=== PATIENT | female | born 1960 | race Caucasian/White ===

== ENCOUNTER → 2016-10-26 | Outpatient (CLI) | payer MEDICAID ==
[~2016-10-26] MED LIST: ADVIL200 MG PO; AMLODIPINE BESYL5 MG PO; ANTIVERT25 MG PO; APRESOLINE 25MG25 MG PO; ATIVAN1 M1 PO; ATORVASTATIN CA40 MG PO; BUDESONIDE0.5 MG/2 M IH; CLOPIDOGREL PO; DECADRON 4MG TAB4 MG PO; DESYREL DIVIDO150 M1 PO; DULCOLAX PO; ED FLEXERI6 TAB/BOTT PO; ED NORCO 56 UDTAB/BO PO; ENOXAPARIN40 MG/0.1 SQ; ERGOCALCIFER50000 IU PO; FERROUS SU325 MG/TAB PO; FLEXERIL10 MG PO; FUROSEMIDE20 MG PO; HUMALOG100 U/ML SQ; INCRUSE EL62.5 MCG/A IH; IPRATROPIUM BROM3 M1 IH; KLOR-CON 1010 MEQ PO; LANTUS100 U/ML SQ; LASIX 40MG TABL40 MG PO; LEVEMIR100 U/M1 SQ; LIDODERM PATCH TP; LISINOPRIL-HYDR1 TA1 PO; LISINOPRIL/HCTZ1 TA1 PO; LORCET1 TAB PO; MECLIZINE25 MG PO; METOPROLOL SUCC50 M1 PO; METOPROLOL TAR100 M1 PO; NAPROSYN500 MG PO; NORCO 325 MG-51 TA1 PO; NORVASC 10MG10 MG PO; NOVOLOG 100U100 U/M1 SC; NOVOLOG 100U100 U/ML SQ; NYSTATIN60 GM TP; ORPHENADRINE C100 MG PO; PANTOPRAZOLE SO40 MG PO; PEG 335017 GM/Dose PO; PENICILLIN-VK250 MG PO; PERCOCET 325 MG1 TA2 PO; PERFOROMIS20 MCG/2 M IH; Patient's Own Medica PO; Patient's Own Medica SQ; SIMVASTATIN80 MG PO; TRIAMCINOLONE A15 GM TP; TRIAMCINOLONE AC0.13 TP; TYLENOL 500MG500 MG PO; VALACYCLOVIR HCL1 GM PO; VITAMIN C500 MG PO; VITAMIN D50000 I2 PO; VITAMIN D50000 UNIT PO; ZESTRIL10 M1 PO
== END ==
LOC: LAB 10:09
DX: N18.2 Chronic kidney disease, stage 2 (mild) (principal)

== ENCOUNTER 2016-11-07 14:29 | Observation (INO) | payer MEDICAID ==
[~2016-11-07 14:29] MED LIST changes: -APRESOLINE 25MG25 MG PO; -ATIVAN1 M1 PO; -ATORVASTATIN CA40 MG PO; -BUDESONIDE0.5 MG/2 M IH; -CLOPIDOGREL PO; -DESYREL DIVIDO150 M1 PO; -DULCOLAX PO; -ENOXAPARIN40 MG/0.1 SQ; -ERGOCALCIFER50000 IU PO; -FERROUS SU325 MG/TAB PO; -FUROSEMIDE20 MG PO; -INCRUSE EL62.5 MCG/A IH; -IPRATROPIUM BROM3 M1 IH; -KLOR-CON 1010 MEQ PO; -LEVEMIR100 U/M1 SQ; -LIDODERM PATCH TP; -LORCET1 TAB PO; -METOPROLOL TAR100 M1 PO; -NOVOLOG 100U100 U/ML SQ; -NYSTATIN60 GM TP; -PANTOPRAZOLE SO40 MG PO; -PEG 335017 GM/Dose PO; -PERFOROMIS20 MCG/2 M IH; -Patient's Own Medica PO; -Patient's Own Medica SQ; -TRIAMCINOLONE A15 GM TP; -TRIAMCINOLONE AC0.13 TP; -VITAMIN C500 MG PO; -VITAMIN D50000 I2 PO; -VITAMIN D50000 UNIT PO; -ZESTRIL10 M1 PO
[2016-11-07 18:00] VITALS: BP 134/86
--- NOTE | 2016-11-07 18:13 | NUR ---
PATIENT ASSISTED TO ROOM VIA W/C FROM ED. OXYGEN REMAINS IN PLACE. SHE DOES REPORT EASE OF BREATHING WITH OXYGEN PLACEMENT; THEY DO REMAIN SLIGHTLY ELEVATED AT 24/MIN. SANDWICH AND SUGAR FREE JELLO PROVIDED TO PATIENT PER REQUEST.
[2016-11-07 18:22] VITALS: BP 134/86
--- NOTE | 2016-11-07 19:28 | NUR ---
REPORT PROVIDED TO LUCIA HERNANDEZ.
--- NOTE | 2016-11-07 21:00 | NUR ---
Shift assessment documented and completed at this time. Pt resting in bed watching TV. Denies dyspnea or pain. 2L NC utilized to maintain spO2 around 90%. Pt states "I feel better after I got this thing" in reference to nasal cannula. HS medications given whole without issue. BG 97; 65 units Lantus adminstered per order. Lungs clear to diminished. Minimal edema to BLE and abdomen. Telemetry in place, NSR. UA collected and sent to lab. No further needs at this time. Bed locked, low, call light within reach, alarm armed.
[2016-11-07 23:09] VITALS: BP 151/73
[2016-11-08 02:25] VITALS: BP 165/82
[2016-11-08 06:22] VITALS: BP 164/86
--- NOTE | 2016-11-08 07:20 | NUR ---
REPORT RECEIVED FROM LUCIA BENTLEY RN
[2016-11-08 07:27] VITALS: BP 137/77
--- NOTE | 2016-11-08 07:27 | NUR ---
PATIENT SITTING UP ON EDGE OF BED. SQL CONSULTANT IN WITH PATIENT. PATIENT JERKING AND SHAKING. REPORTS THAT SHE SAT UP ON EDGE OF BED TO GO TO BATHROOM AND IS FEELING DIZZY. STATES "I JUST FEEL HAZY AND DIZZY" DENIES ANY OTHER SYMPTOMS AT THIS TIME. DENIES CHEST PAIN. REPORTS THAT HER BREATHING FEELS BETTER THIS MORNING. PATIENT HAS DAZED LOOK ON FACE. COLOR PALE. BLOOD PRESSURE 137/77, RESPIRATORY RATE 24, SP02 88% ON OXYGEN VIA AT 3L NASAL CANNULA. OXYGEN INCREASED TO 4L. SP02 UP TO 92-93%. ORIENTED X4. LUNG SOUNDS DIMINISHED IN ALL [place]. RESPIRATIONS SHALLOW. ACCU CHECK 112. CALL LIGHT WITHIN REACH. BED ALARM ON.
--- NOTE | 2016-11-08 07:35 | NUR ---
LAMBERT DE LEON NOTIFIED OF PATIENT'S REPORTS OF DIZZINESS, FEELING HAZY, AND THAT SHE IS JERKING.
--- NOTE | 2016-11-08 07:42 | NUR ---
HALEY BOLIVAR IN TO SEE PATIENT.
--- NOTE | 2016-11-08 07:45 | NUR ---
PATIENT ASSISTED TO BEDSIDE COMMODE. REPORTS NEEDING TO URINATE. PATIENT UNABLE TO VOID. REPORTS THAT SHE CAN NOT VOID BECAUSE OF HER JERKING AND SHAKING. ASSISTED BACK TO BED. CONTINUES TO HAVE JERKY MOVEMENTS AND BE SHAKY. HALEY BECERRA NOTIFIED. ORDER RECEIVED TO PLACE MURRAY CATHETER.
--- NOTE | 2016-11-08 08:15 | NUR ---
MURRAY CATHETER PLACED AT THIS TIME. PATIENT TOLERATED WELL. IMMEDIATE RETURN OF CLOUDY YELLOW URINE IN MURRAY BAG. APPROXIMATELY 500 MLS OF URINE IN MURRAY BAG. UA SENT TO LAB.
[2016-11-08 09:27] VITALS: BP 138/72
--- NOTE | 2016-11-08 09:30 | NUR ---
PATIENT LYING IN BED WITH HEAD OF BED ELEVATED. ON OXYGEN VIA NASAL CANNULA AT 4L. CONTINUES TO REPORT DIZZINESS AND FEELING "HAZY" STILL HAS JERKING/SHAKING. CALL LIGHT WITHIN REACH. BED ALARM ON/
--- NOTE | 2016-11-08 09:34 | NUR ---
ALFONSO PA ON PHONE WITH DR WATERS FROM [facility].
--- NOTE | 2016-11-08 10:05 | NUR ---
MADY CALDERONHAM BONER AT [facility]. PATIENT GOING TO ROOM 322 BED [address] UNDER THE CARE OF DR. NAYLOR.
--- NOTE | 2016-11-08 10:17 | NUR ---
REPORT GIVEN TO MARY JARAMILLO AT [facility]. DENIES ANY QUESTIONS FOR THE NURSE AT THIS TIME.
[2016-11-08] MEDS ORDERED: ENOXAPARIN40 MG/0.1 SQ (10:26)
[2016-11-08] MEDS ORDERED: Patient's Own Medica SQ ×3 (10:27)
[2016-11-08] MEDS ORDERED: Patient's Own Medica PO ×2 (10:27)
--- NOTE | 2016-11-08 10:31 | NUR ---
PATIENT LEFT FACILITY VIA AMBULANCE FOR TRANSFER TO [facility] UNDER THE CARE OF . TRANSFER PAPERWORK SENT WITH EMS. PATIENT'S DAUGHTER ACCOMPANING PATIENT. PERSONAL BELONGINGS SENT WITH DAUGHTER.
== END 2016-11-08 10:31 | disposition short-term general hospital (02) ==
LOC: ED 14:29 → MED/SURG 17:27
PROVIDERS: ADMIT Family Medicine
DX: I50.9 Heart failure, unspecified (principal); E87.70 Fluid overload, unspecified; R09.02 Hypoxemia; R25.8 Other abnormal involuntary movements; I27.81 Cor pulmonale (chronic); E66.2 Morbid (severe) obesity with alveolar hypoventilation; Z68.43 Body mass index [BMI] 50.0-59.9, adult; E87.5 Hyperkalemia; E88.81 Metabolic syndrome and other insulin resistance; E11.21 Type 2 diabetes mellitus with diabetic nephropathy; Z79.4 Long term (current) use of insulin; I10 Essential (primary) hypertension; G47.30 Sleep apnea, unspecified; E11.22 Type 2 diabetes mellitus with diabetic chronic kidney disease; I12.9 Hypertensive chronic kidney disease with stage 1 through stage 4 chronic kidney disease, or unspecified chronic kidney disease; N18.9 Chronic kidney disease, unspecified; Z85.528 Personal history of other malignant neoplasm of kidney
CPT/HCPCS: G0378; J1650; J1940

== ENCOUNTER 2016-11-18 16:52 | Inpatient (IN) | payer MEDICAID ==
[~2016-11-18 16:52] MED LIST changes: +ENOXAPARIN40 MG/0.1 SQ; +Patient's Own Medica PO; +Patient's Own Medica SQ
[2016-11-19 16:05] VITALS: BP 150/90
[2016-11-19 18:15] VITALS: BP 174/82
[2016-11-19] MEDS ORDERED: TRIAMCINOLONE A15 GM TP (23:28)
[2016-11-20 06:26] VITALS: BP 144/78
[2016-11-20 18:38] VITALS: BP 149/82
[2016-11-21 06:24] VITALS: BP 137/65
[2016-11-21 18:28] VITALS: BP 122/67
[2016-11-22 06:33] VITALS: BP 158/92
[2016-11-22 18:16] VITALS: BP 150/75
[2016-11-23 06:22] VITALS: BP 164/84
[2016-11-23 18:16] VITALS: BP 167/80
[2016-11-24 06:38] VITALS: BP 177/87
[2016-11-24 18:27] VITALS: BP 169/86
[2016-11-25 06:25] VITALS: BP 178/88
[2016-11-25 18:18] VITALS: BP 161/84
[2016-11-26 06:31] VITALS: BP 162/88
[2016-11-26 18:20] VITALS: BP 165/86
[2016-11-27 06:26] VITALS: BP 173/97
[2016-11-27 18:35] VITALS: BP 152/87
[2016-11-28 06:21] VITALS: BP 162/87
[2016-11-28 18:15] VITALS: BP 148/85
[2016-11-29 06:31] VITALS: BP 172/99
[2016-11-29 18:02] VITALS: BP 141/69
[2016-11-30 06:32] VITALS: BP 168/88
[2016-11-30 18:06] VITALS: BP 142/74
[2016-12-01 06:22] VITALS: BP 161/84
[2016-12-01 13:40] VITALS: BP 122/68
[2016-12-01 18:11] VITALS: BP 160/78
[2016-12-02 06:22] VITALS: BP 169/89
[2016-12-02 18:47] VITALS: BP 157/89
[2016-12-03 06:24] VITALS: BP 139/80
[2016-12-03 18:20] VITALS: BP 140/72
[2016-12-04 06:39] VITALS: BP 149/87
[2016-12-04 18:09] VITALS: BP 137/78
[2016-12-05 06:33] VITALS: BP 129/72
[2016-12-05 18:33] VITALS: BP 123/62
[2016-12-06 06:24] VITALS: BP 168/76
[2016-12-06 18:15] VITALS: BP 145/76
[2016-12-07 06:25] VITALS: BP 160/75
[2016-12-07 18:04] VITALS: BP 127/57
[2016-12-08 06:37] VITALS: BP 139/70
[2016-12-08 18:01] VITALS: BP 140/64
[2016-12-09 06:25] VITALS: BP 149/73
[2016-12-09 18:43] VITALS: BP 140/79
[2016-12-10 06:33] VITALS: BP 121/76
[2016-12-10 18:14] VITALS: BP 134/78
[2016-12-11 06:33] VITALS: BP 122/64
[2016-12-11 18:13] VITALS: BP 132/72
[2016-12-12 06:32] VITALS: BP 129/70
[2016-12-12 18:32] VITALS: BP 122/63
[2016-12-13 06:23] VITALS: BP 133/63
[2016-12-13 18:15] VITALS: BP 128/63
[2016-12-14 06:25] VITALS: BP 123/55
[2016-12-14 18:05] VITALS: BP 136/64
[2016-12-15 06:31] VITALS: BP 127/56
[2016-12-15 18:19] VITALS: BP 137/65
[2016-12-16 06:42] VITALS: BP 131/63
[2016-12-16 18:23] VITALS: BP 152/69
[2016-12-17 06:33] VITALS: BP 127/65
[2016-12-17 18:09] VITALS: BP 127/68
[2016-12-18 06:26] VITALS: BP 114/57
[2016-12-18 19:40] VITALS: BP 123/57
[2016-12-19 06:16] VITALS: BP 111/56
[2016-12-19 18:34] VITALS: BP 135/65
[2016-12-20 06:50] VITALS: BP 120/65
[2016-12-20 18:17] VITALS: BP 141/58
[2016-12-21 07:03] VITALS: BP 140/74
[2016-12-21 17:53] VITALS: BP 131/64
[2016-12-22 06:31] VITALS: BP 155/69
[2016-12-22 18:32] VITALS: BP 155/62
[2016-12-23 06:27] VITALS: BP 151/68
[2016-12-23 18:01] VITALS: BP 152/68
[2016-12-24 06:07] VITALS: BP 114/58
[2016-12-24 18:43] VITALS: BP 138/63
[2016-12-25 06:48] VITALS: BP 119/60
[2016-12-25 18:27] VITALS: BP 133/59
[2016-12-26 06:10] VITALS: BP 127/70
[2016-12-26 18:24] VITALS: BP 148/66
[2016-12-27 06:21] VITALS: BP 132/69
[2016-12-27 18:33] VITALS: BP 128/68
[2016-12-28 06:34] VITALS: BP 144/72
[2016-12-28 18:17] VITALS: BP 126/64
[2016-12-29 06:25] VITALS: BP 120/59
[2016-12-29 18:16] VITALS: BP 150/66
[2016-12-30 06:22] VITALS: BP 140/70
[2016-12-30 18:08] VITALS: BP 155/71
[2016-12-31 06:28] VITALS: BP 150/65
[2016-12-31 18:15] VITALS: BP 140/74
[2017-01-01 06:24] VITALS: BP 136/67
[2017-01-01 18:20] VITALS: BP 131/56
[2017-01-02 06:24] VITALS: BP 143/69
[2017-01-02 18:30] VITALS: BP 158/68
[2017-01-03 06:06] VITALS: BP 123/58
[2017-01-03 18:15] VITALS: BP 157/65
[2017-01-04 06:25] VITALS: BP 144/63
[2017-01-04 18:02] VITALS: BP 150/72
[2017-01-05 06:26] VITALS: BP 122/51
[2017-01-05 18:04] VITALS: BP 149/63
[2017-01-06 06:26] VITALS: BP 164/80
[2017-01-06] MEDS ORDERED: INCRUSE EL62.5 MCG/A IH (09:54)
[2017-01-06] MEDS ORDERED: IPRATROPIUM BROM3 M1 IH (09:54)
[2017-01-06] MEDS ORDERED: PERFOROMIS20 MCG/2 M IH (09:55)
[2017-01-06] MEDS ORDERED: FERROUS SU325 MG/TAB PO (09:55)
[2017-01-06] MEDS ORDERED: CLOPIDOGREL PO (09:56)
[2017-01-06] MEDS ORDERED: ATORVASTATIN CA40 MG PO (09:56)
[2017-01-06] MEDS ORDERED: APRESOLINE 25MG25 MG PO (09:57)
[2017-01-06] MEDS ORDERED: METOPROLOL TAR100 M1 PO (09:58)
[2017-01-06] MEDS ORDERED: ZESTRIL10 M1 PO (09:58)
[2017-01-06] MEDS ORDERED: LORCET1 TAB PO (09:59)
[2017-01-06] MEDS ORDERED: DESYREL DIVIDO150 M1 PO (10:00)
[2017-01-06] MEDS ORDERED: ATIVAN1 M1 PO (10:01)
[2017-01-06] MEDS ORDERED: KLOR-CON 1010 MEQ PO (10:02)
[2017-01-06] MEDS ORDERED: FUROSEMIDE20 MG PO (10:02)
[2017-01-06] MEDS ORDERED: DULCOLAX PO (10:03)
[2017-01-06] MEDS ORDERED: BUDESONIDE0.5 MG/2 M IH (10:03)
[2017-01-06] MEDS ORDERED: PANTOPRAZOLE SO40 MG PO (10:04)
[2017-01-06] MEDS ORDERED: PEG 335017 GM/Dose PO (10:04)
[2017-01-06] MEDS ORDERED: NOVOLOG 100U100 U/ML SQ ×3 (10:06)
[2017-01-06] MEDS ORDERED: LEVEMIR100 U/M1 SQ (10:06)
[2017-01-06] MEDS ORDERED: NYSTATIN60 GM TP (10:07)
[2017-01-06] MEDS ORDERED: LIDODERM PATCH TP (10:08)
[2017-01-06] MEDS ORDERED: TRIAMCINOLONE AC0.13 TP (10:08)
[2017-01-06] MEDS ORDERED: VITAMIN C500 MG PO (10:09)
[2017-01-06] MEDS ORDERED: ERGOCALCIFER50000 IU PO (10:09)
== END 2017-01-06 16:15 | disposition home health service (06) | DRG 57 ==
LOC: MED/SURG 11-19 15:15
PROVIDERS: ADMIT Physician Assistant
DX: I69.351 Hemiplegia and hemiparesis following cerebral infarction affecting right dominant side (principal); R53.81 Other malaise; E11.9 Type 2 diabetes mellitus without complications; E66.01 Morbid (severe) obesity due to excess calories; Z68.43 Body mass index [BMI] 50.0-59.9, adult; N17.9 Acute kidney failure, unspecified; G47.33 Obstructive sleep apnea (adult) (pediatric); L89.132 Pressure ulcer of right lower back, stage 2; E78.5 Hyperlipidemia, unspecified; D64.9 Anemia, unspecified; I13.0 Hypertensive heart and chronic kidney disease with heart failure and stage 1 through stage 4 chronic kidney disease, or unspecified chronic kidney disease; I50.9 Heart failure, unspecified; N18.9 Chronic kidney disease, unspecified; J96.10 Chronic respiratory failure, unspecified whether with hypoxia or hypercapnia; L40.9 Psoriasis, unspecified; Z79.4 Long term (current) use of insulin; Z87.891 Personal history of nicotine dependence; Z85.528 Personal history of other malignant neoplasm of kidney
CPT/HCPCS: A6206; J1650; J1815; J1940; J7512

== ENCOUNTER → 2017-02-10 | Outpatient (CLI) | payer MEDICAID ==
[~2017-02-10] MED LIST changes: +APRESOLINE 25MG25 MG PO; +ATIVAN1 M1 PO; +ATORVASTATIN CA40 MG PO; +BUDESONIDE0.5 MG/2 M IH; +CLOPIDOGREL PO; +DESYREL DIVIDO150 M1 PO; +DULCOLAX PO; +ERGOCALCIFER50000 IU PO; +FERROUS SU325 MG/TAB PO; +FUROSEMIDE20 MG PO; +INCRUSE EL62.5 MCG/A IH; +IPRATROPIUM BROM3 M1 IH; +KLOR-CON 1010 MEQ PO; +LEVEMIR100 U/M1 SQ; +LIDODERM PATCH TP; +LORCET1 TAB PO; +METOPROLOL TAR100 M1 PO; +NOVOLOG 100U100 U/ML SQ; +NYSTATIN60 GM TP; +PANTOPRAZOLE SO40 MG PO; +PEG 335017 GM/Dose PO; +PERFOROMIS20 MCG/2 M IH; +TRIAMCINOLONE A15 GM TP; +TRIAMCINOLONE AC0.13 TP; +VITAMIN C500 MG PO; +VITAMIN D50000 I2 PO; +VITAMIN D50000 UNIT PO; +ZESTRIL10 M1 PO
== END ==
LOC: LAB 08:38
DX: I10 Essential (primary) hypertension (principal); I63.311 Cerebral infarction due to thrombosis of right middle cerebral artery; E11.9 Type 2 diabetes mellitus without complications; D50.9 Iron deficiency anemia, unspecified; K90.9 Intestinal malabsorption, unspecified; R80.9 Proteinuria, unspecified; N04.9 Nephrotic syndrome with unspecified morphologic changes; N18.3 Chronic kidney disease, stage 3 (moderate)

== ENCOUNTER 2017-02-13 14:49 | Observation (INO) | payer MEDICAID ==
[~2017-02-13] VITALS: Ht 162.6 cm; Wt 135.0 kg
[~2017-02-13 14:49] MED LIST changes: -VITAMIN D50000 I2 PO; -VITAMIN D50000 UNIT PO
[2017-02-13] MEDS ORDERED: METOPROLOL TAR100 M1 PO (17:06)
[2017-02-13 17:37] VITALS: BP 115/55
[2017-02-13 17:38] VITALS: BP 115/55
[2017-02-13 18:19] VITALS: BP 115/71
[2017-02-13 23:13] VITALS: BP 124/64
[2017-02-14 02:52] VITALS: BP 126/59
[2017-02-14 06:21] VITALS: BP 128/57
[2017-02-14 11:00] VITALS: BP 164/66
[2017-02-14 15:25] VITALS: BP 138/50
[2017-02-14 18:20] VITALS: BP 141/67
[2017-02-14 23:13] VITALS: BP 152/67
[2017-02-15 03:34] VITALS: BP 142/69
[2017-02-15 06:25] VITALS: BP 162/66
[2017-02-15 11:05] VITALS: BP 165/75
[2017-02-15 15:37] VITALS: BP 156/82
[2017-02-15] MEDS ORDERED: VITAMIN D50000 UNIT PO (16:14)
[2017-02-15] MEDS ORDERED: VITAMIN D50000 I2 PO (16:15)
[2017-02-15] MEDS ORDERED: APRESOLINE 25MG25 MG PO (16:18)
[2017-02-15 17:59] VITALS: BP 167/85
[2017-02-15 23:09] VITALS: BP 157/88
[2017-02-16 03:21] VITALS: BP 123/45
[2017-02-16 03:24] VITALS: BP 166/80
[2017-02-16 06:27] VITALS: BP 188/87
[2017-02-16] MEDS ORDERED: LEVEMIR100 U/M1 SQ (10:05)
[2017-02-16 11:10] VITALS: BP 171/84
[2017-02-16 12:09] VITALS: BP 171/84
[2017-02-16 14:41] VITALS: BP 155/90
== END 2017-02-16 14:50 ==
LOC: ED 14:49 → MED/SURG 16:36
PROVIDERS: ADMIT Family Medicine
DX: N17.9 Acute kidney failure, unspecified (principal); N18.9 Chronic kidney disease, unspecified; E86.9 Volume depletion, unspecified; I12.9 Hypertensive chronic kidney disease with stage 1 through stage 4 chronic kidney disease, or unspecified chronic kidney disease; E11.22 Type 2 diabetes mellitus with diabetic chronic kidney disease; Z79.4 Long term (current) use of insulin; E87.5 Hyperkalemia; I27.81 Cor pulmonale (chronic); I69.354 Hemiplegia and hemiparesis following cerebral infarction affecting left non-dominant side; Z90.5 Acquired absence of kidney; E11.649 Type 2 diabetes mellitus with hypoglycemia without coma; J44.9 Chronic obstructive pulmonary disease, unspecified; G47.30 Sleep apnea, unspecified; Z85.528 Personal history of other malignant neoplasm of kidney
CPT/HCPCS: G0378; J1815

== ENCOUNTER → 2017-02-18 | Outpatient (CLI) | payer MEDICAID ==
[2017-02-16 14:41] VITALS: BP 155/90
[~2017-02-18] MED LIST changes: +VITAMIN D50000 I2 PO; +VITAMIN D50000 UNIT PO
== END ==
LOC: LAB 06:30
DX: N18.9 Chronic kidney disease, unspecified (principal)

== ENCOUNTER → 2017-03-01 | Outpatient (CLI) | payer MEDICAID ==
[2017-02-16 14:41] VITALS: BP 155/90
== END ==
LOC: LAB 05:44
DX: D64.9 Anemia, unspecified (principal)

== ENCOUNTER → 2017-03-03 | Outpatient (CLI) | payer MEDICAID ==
[2017-02-16 14:41] VITALS: BP 155/90
== END ==
LOC: LAB 15:01
DX: N18.3 Chronic kidney disease, stage 3 (moderate) (principal)

== ENCOUNTER → 2017-03-28 | Outpatient (CLI) | payer MEDICAID | LOC: LAB 12:13 | DX: E07.89 Other specified disorders of thyroid (principal) ==

== ENCOUNTER → 2017-03-31 | Outpatient (CLI) | payer MEDICAID | LOC: LAB 10:05 | DX: I10 Essential (primary) hypertension (principal); E23.6 Other disorders of pituitary gland ==

== ENCOUNTER → 2017-04-14 | Outpatient (CLI) | payer MEDICAID | LOC: LAB 07:52 | DX: E87.5 Hyperkalemia (principal) ==

== ENCOUNTER 2017-06-26 10:55 | Emergency (ER) | payer MEDICAID ==
[~2017-06-26] VITALS: Ht 162.6 cm; Wt 134.1 kg
[2017-06-26] MEDS ORDERED: ANORO ELLIPTA1 POW IH (11:03)
[2017-06-26] MEDS ORDERED: LASIX40 M1 PO (11:16)
[2017-06-26 12:41] VITALS: BP 188/79
== END 2017-06-26 12:44 | disposition home or self-care (01) ==
LOC: ED 10:55
DX: I16.0 Hypertensive urgency (principal); I13.0 Hypertensive heart and chronic kidney disease with heart failure and stage 1 through stage 4 chronic kidney disease, or unspecified chronic kidney disease; N18.9 Chronic kidney disease, unspecified; E87.5 Hyperkalemia; Z86.73 Personal history of transient ischemic attack (TIA), and cerebral infarction without residual deficits; Z79.4 Long term (current) use of insulin; E11.22 Type 2 diabetes mellitus with diabetic chronic kidney disease; I50.9 Heart failure, unspecified; Z90.5 Acquired absence of kidney; G47.30 Sleep apnea, unspecified; Z79.02 Long term (current) use of antithrombotics/antiplatelets; J35.1 Hypertrophy of tonsils

== ENCOUNTER 2017-07-16 12:08 | Emergency (ER) | payer MEDICAID ==
[~2017-07-16] VITALS: Ht 162.6 cm; Wt 138.2 kg
[~2017-07-16 12:08] MED LIST changes: +ANORO ELLIPTA1 POW IH; +LASIX40 M1 PO
[2017-07-16] MEDS ORDERED: LOPRESSOR 550 MG/TAB PO ×2 (12:20→12:23)
[2017-07-16 12:41] LABS: EOS # 0.2 (0.04-0.40); EOS % 2.4 % (1.0-5.0); HEMATOCRIT 33.5 % (37.0-47.0); HEMOGLOBIN 10.1 g/dL (12.5-16.0); LYMPH# 2.3 (1.50-4.00); MEAN CELL VOLUME 85 fl (78-100); MEAN CORPUSCULAR HEMOGLOBIN 26 pg (27-31); MEAN CORPUSCULAR HGB CONC 30 g/dL (33-37); MEAN PLATELET VOLUME 10.7 fl (7.4-10.4); NEU # 4.5 (1.40-6.50); PLATELET COUNT 202 K/mm3 (130-400); RED BLOOD COUNT 3.96 M/mm3 (4.10-5.30); WHITE BLOOD COUNT 8.1 K/mm3 (4.8-10.8)
[2017-07-16 12:53] LABS: ALBUMIN 3.4 g/dL (3.5-5.0); BUN/CREATININE RATIO 23.8 (6.0-26.0); TOTAL BILIRUBIN 0.5 mg/dL (0.2-1.3); TOTAL PROTEIN 6.5 g/dL (6.3-8.2)
[2017-07-16] MEDS ORDERED: MECLIZINE PO (14:52)
[2017-07-16 14:58] VITALS: BP 166/73
== END 2017-07-16 14:54 | disposition home or self-care (01) ==
LOC: ED 12:08
PROVIDERS: Family Medicine
DX: R42 Dizziness and giddiness (principal); I13.0 Hypertensive heart and chronic kidney disease with heart failure and stage 1 through stage 4 chronic kidney disease, or unspecified chronic kidney disease; E11.22 Type 2 diabetes mellitus with diabetic chronic kidney disease; N18.9 Chronic kidney disease, unspecified; Z79.4 Long term (current) use of insulin; Z86.73 Personal history of transient ischemic attack (TIA), and cerebral infarction without residual deficits; J44.9 Chronic obstructive pulmonary disease, unspecified; Z79.02 Long term (current) use of antithrombotics/antiplatelets

== ENCOUNTER → 2017-08-02 | Outpatient (CLI) | payer MEDICAID ==
[2017-07-16 14:58] VITALS: BP 166/73
[~2017-08-02] MED LIST changes: +LOPRESSOR 550 MG/TAB PO; +MECLIZINE PO
[2017-08-02 09:12] LABS: EOS # 0.2 (0.04-0.40); EOS % 2.3 % (1.0-5.0); HEMOGLOBIN 10.2 g/dL (12.5-16.0); LYMPH# 2.3 (1.50-4.00); MEAN CELL VOLUME 85 fl (78-100); MEAN CORPUSCULAR HEMOGLOBIN 26 pg (27-31); MEAN CORPUSCULAR HGB CONC 30 g/dL (33-37); MEAN PLATELET VOLUME 10.3 fl (7.4-10.4); MONO # 0.7 (0.20-0.80); NEU # 4.7 (1.40-6.50); PLATELET COUNT 216 K/mm3 (130-400); RED BLOOD COUNT 3.99 M/mm3 (4.10-5.30); RED CELL DISTRIBUTION WIDTH 15.9 % (11.5-14.5); WHITE BLOOD COUNT 7.9 K/mm3 (4.8-10.8)
[2017-08-02 09:20] LABS: BUN/CREATININE RATIO 31.9 (6.0-26.0); CALCIUM 9.2 mg/dL (8.4-10.2); POTASSIUM 4.8 mmol/L (3.6-5.0)
== END ==
LOC: LAB 08:47
PROVIDERS: Internal Medicine
DX: I15.8 Other secondary hypertension (principal); R80.8 Other proteinuria; N18.3 Chronic kidney disease, stage 3 (moderate)

== ENCOUNTER 2017-08-23 07:35 | Emergency (ER) | payer MEDICAID ==
[~2017-08-23] VITALS: Wt 148.6 kg
[2017-08-23 07:54] LABS: EOS # 0.3 (0.04-0.40); EOS % 2.1 % (1.0-5.0); HEMATOCRIT 39.4 % (37.0-47.0); HEMOGLOBIN 11.7 g/dL (12.5-16.0); MEAN CELL VOLUME 86 fl (78-100); MEAN CORPUSCULAR HEMOGLOBIN 26 pg (27-31); MEAN CORPUSCULAR HGB CONC 30 g/dL (33-37); MEAN PLATELET VOLUME 10.6 fl (7.4-10.4); MONO # 1.3 (0.20-0.80); NEU # 7.3 (1.40-6.50); PLATELET COUNT 298 K/mm3 (130-400); RED BLOOD COUNT 4.58 M/mm3 (4.10-5.30); RED CELL DISTRIBUTION WIDTH 15.8 % (11.5-14.5); WHITE BLOOD COUNT 15.3 K/mm3 (4.8-10.8)
[2017-08-23 08:03] LABS: LYMPH# 6.1 (1.50-4.00)
[2017-08-23 08:20] LABS: TROPONIN-I < 0.03 ng/mL (0.00-0.06)
[2017-08-23 08:23] LABS: ALBUMIN 3.6 g/dL (3.5-5.0); BUN/CREATININE RATIO 29.5 (6.0-26.0); CALCIUM 9.2 mg/dL (8.4-10.2); D-DIMER 0.73 mg/L FEU (0.15-0.50); POTASSIUM 4.8 mmol/L (3.6-5.0); TOTAL BILIRUBIN 0.5 mg/dL (0.2-1.3); TOTAL PROTEIN 6.9 g/dL (6.3-8.2)
[2017-08-23] MEDS ORDERED: LANTUS PEN100 U/ML SQ (08:28)
[2017-08-23] MEDS ORDERED: METOPROLOL TAR100 M1 PO (08:29)
[2017-08-23] MEDS ORDERED: ACETAMINOPHEN-H1 TA2 PO (08:29)
[2017-08-23] MEDS ORDERED: PULMICORT0.25 MG/2 (08:31)
[2017-08-23] MEDS ORDERED: NYSTATIN15 GM TP (08:32)
[2017-08-23] MEDS ORDERED: HYDRALAZINE HYD50 MG PO (08:32)
[2017-08-23] MEDS ORDERED: FUROSEMIDE20 MG PO (08:32)
[2017-08-23] MEDS ORDERED: COLACE100 M1 PO (08:33)
[2017-08-23 09:19] LABS: URINE APPEARANCE CLEAR; URINE BILIRUBIN NEGATIVE (NEGATIVE); URINE BLOOD 50 ery/uL (NEGATIVE); URINE COLOR YELLOW; URINE KETONE NEGATIVE (NEGATIVE); URINE LEUKOCYTE ESTERASE NEGATIVE (NEGATIVE); URINE MUCUS PRESENT (NOT PRESENT); URINE NITRATE NEGATIVE (NEGATIVE); URINE PROTEIN(semi-quant) 3+ mg/dL (NEGATIVE); URINE UROBILINOGEN NORMAL (NORMAL)
[2017-08-23 11:20] VITALS: BP 143/70
== END 2017-08-23 11:21 | disposition short-term general hospital (02) ==
LOC: ED 07:35
PROVIDERS: Physician Assistant
DX: J96.01 Acute respiratory failure with hypoxia (principal); J44.9 Chronic obstructive pulmonary disease, unspecified; I13.0 Hypertensive heart and chronic kidney disease with heart failure and stage 1 through stage 4 chronic kidney disease, or unspecified chronic kidney disease; I50.9 Heart failure, unspecified; N18.9 Chronic kidney disease, unspecified; E11.22 Type 2 diabetes mellitus with diabetic chronic kidney disease; E66.01 Morbid (severe) obesity due to excess calories; Z71.3 Dietary counseling and surveillance; Z90.5 Acquired absence of kidney; Z85.528 Personal history of other malignant neoplasm of kidney; G47.33 Obstructive sleep apnea (adult) (pediatric); L40.9 Psoriasis, unspecified; E78.5 Hyperlipidemia, unspecified; Z87.891 Personal history of nicotine dependence; Z79.02 Long term (current) use of antithrombotics/antiplatelets; Z79.4 Long term (current) use of insulin
CPT/HCPCS: J1940; J2930

== ENCOUNTER → 2017-09-29 | Outpatient (CLI) | payer MEDICAID ==
[~2017-09-29] MED LIST changes: +ACETAMINOPHEN-H1 TA2 PO; +COLACE100 M1 PO; +HYDRALAZINE HYD50 MG PO; +LANTUS PEN100 U/ML SQ; +NYSTATIN15 GM TP; +PULMICORT0.25 MG/2
[2017-09-29 11:26] LABS: EOS # 0.1 (0.04-0.40); EOS % 1.1 % (1.0-5.0); HEMATOCRIT 34.8 % (37.0-47.0); HEMOGLOBIN 10.2 g/dL (12.5-16.0); LYMPH# 2.1 (1.50-4.00); MEAN CELL VOLUME 85 fl (78-100); MEAN CORPUSCULAR HEMOGLOBIN 25 pg (27-31); MEAN PLATELET VOLUME 10.3 fl (7.4-10.4); MONO # 0.7 (0.20-0.80); NEU # 5.8 (1.40-6.50); PLATELET COUNT 212 K/mm3 (130-400); RED BLOOD COUNT 4.08 M/mm3 (4.10-5.30); RED CELL DISTRIBUTION WIDTH 16.2 % (11.5-14.5); WHITE BLOOD COUNT 8.9 K/mm3 (4.8-10.8)
[2017-09-29 11:47] LABS: BUN/CREATININE RATIO 26.6 (6.0-26.0); MEAN CORPUSCULAR HGB CONC 29 g/dL (33-37)
== END ==
LOC: LAB 11:09
PROVIDERS: Internal Medicine
DX: N18.3 Chronic kidney disease, stage 3 (moderate) (principal); R80.8 Other proteinuria; I15.8 Other secondary hypertension; E87.5 Hyperkalemia

== ENCOUNTER → 2017-10-04 | Outpatient (CLI) | payer MEDICAID ==
[2017-10-04 11:08] LABS: ALBUMIN 3.2 g/dL (3.5-5.0); BUN/CREATININE RATIO 24.2 (6.0-26.0); CALCIUM 8.5 mg/dL (8.4-10.2); POTASSIUM 4.4 mmol/L (3.6-5.0); TOTAL BILIRUBIN 0.2 mg/dL (0.2-1.3); TOTAL PROTEIN 6.3 g/dL (6.3-8.2)
[2017-10-04 11:12] LABS: EOS # 0.1 (0.04-0.40); EOS % 1.6 % (1.0-5.0); HEMATOCRIT 33.7 % (37.0-47.0); HEMOGLOBIN 9.8 g/dL (12.5-16.0); LYMPH# 1.8 (1.50-4.00); MEAN CELL VOLUME 85 fl (78-100); MEAN CORPUSCULAR HEMOGLOBIN 25 pg (27-31); MEAN PLATELET VOLUME 11.1 fl (7.4-10.4); MONO # 0.8 (0.20-0.80); PLATELET COUNT 193 K/mm3 (130-400); RED BLOOD COUNT 3.96 M/mm3 (4.10-5.30); WHITE BLOOD COUNT 8.8 K/mm3 (4.8-10.8)
[2017-10-04 11:13] LABS: MEAN CORPUSCULAR HGB CONC 29 g/dL (33-37)
== END ==
LOC: LAB 10:23
PROVIDERS: Internal Medicine
DX: I10 Essential (primary) hypertension (principal); E11.9 Type 2 diabetes mellitus without complications; N18.3 Chronic kidney disease, stage 3 (moderate)

== ENCOUNTER 2017-10-08 05:22 | Observation (INO) | payer MEDICAID ==
[~2017-10-08] VITALS: Ht 162.6 cm; Wt 149.9 kg
[2017-10-08] MEDS ORDERED: FEOSOL325 MG PO (06:00)
[2017-10-08] MEDS ORDERED: ANORO ELLIPTA1 POW IH (06:01)
[2017-10-08] MEDS ORDERED: LANTUS PEN100 U/ML SQ (06:10)
[2017-10-08] MEDS ORDERED: NOVOLOG 100U100 U/ML SQ (06:11)
[2017-10-08 06:26] LABS: EOS # 0.1 (0.04-0.40); EOS % 0.7 % (1.0-5.0); HEMATOCRIT 33.1 % (37.0-47.0); HEMOGLOBIN 9.6 g/dL (12.5-16.0); LYMPH# 1.3 (1.50-4.00); MEAN CELL VOLUME 87 fl (78-100); MEAN CORPUSCULAR HEMOGLOBIN 25 pg (27-31); MEAN PLATELET VOLUME 10.5 fl (7.4-10.4); MONO # 0.7 (0.20-0.80); PLATELET COUNT 201 K/mm3 (130-400); RED BLOOD COUNT 3.81 M/mm3 (4.10-5.30); RED CELL DISTRIBUTION WIDTH 16.3 % (11.5-14.5); WHITE BLOOD COUNT 10.2 K/mm3 (4.8-10.8)
[2017-10-08 06:29] LABS: ALBUMIN 3.2 g/dL (3.5-5.0); BUN/CREATININE RATIO 20.2 (6.0-26.0); CALCIUM 8.3 mg/dL (8.4-10.2); POTASSIUM 4.8 mmol/L (3.6-5.0); TOTAL BILIRUBIN 0.3 mg/dL (0.2-1.3); TOTAL PROTEIN 6.3 g/dL (6.3-8.2)
[2017-10-08 06:30] LABS: MEAN CORPUSCULAR HGB CONC 29 g/dL (33-37)
[2017-10-08 06:43] LABS: TROPONIN-I < 0.03 ng/mL (0.00-0.06)
[2017-10-08 06:52] LABS: URINE APPEARANCE HAZY; URINE BILIRUBIN NEGATIVE (NEGATIVE); URINE COLOR YELLOW; URINE KETONE NEGATIVE (NEGATIVE); URINE NITRATE NEGATIVE (NEGATIVE); URINE UROBILINOGEN NORMAL (NORMAL)
[2017-10-08 06:53] LABS: URINE BLOOD TRACE (NEGATIVE); URINE LEUKOCYTE ESTERASE NEGATIVE (NEGATIVE)
[2017-10-08 07:00] LABS: URINE PROTEIN(semi-quant) 2+ mg/dL (NEGATIVE)
[2017-10-08] MEDS ORDERED: HYDRALAZINE100 MG PO ×2 (08:19)
[2017-10-08 18:24] VITALS: BP 162/62
[2017-10-08 18:26] VITALS: BP 162/62
[2017-10-08 19:05] VITALS: BP 162/62
--- NOTE | 2017-10-08 19:15 | NUR ---
PT ADMITTED OBS FOR DYSPNIA SECONDARY TO PULM VASC CONGESTION. PT HAS HX OF DIABETES AND RENAL FAILURE. DOES NOT WEAR O2 AT HOME BUT WEARS TRILOGY MASK TO SLEEP. HAS BEEN WEARING IT AN ER PT TO ASSIST WITH SOB. TRILOGY HAS BEEN HELPING. GAIT IS STEADY, PT IS ABLE TO MOVE WELL AND DOES NOT SHOW SIGNS OF SOB UNTIL ANSWERING QUESTIONS DURING ASSESSMENT. PSORIASIS COVERS BLE AND BUE ALONG WITH BACK. REDNESS NOTED TO FOLDS OF SKIN, PT USES NYSTATIN AT HOME ON OCCASION. AOX3, SPEACH IS CLEAR. LUNG SOUNDS DIMINISHED THROUGHOUT. EDEMA TO BLE. WILL CONTINUE TO MONITOR.
--- NOTE | 2017-10-08 19:56 | NUR ---
PT ADMITED OBS TO ROOM 304 WITH DX OF DYSPNEA SECONDARY TO PULM VASC CONGESTION. AOX3, LUNGS DIMINISHED THROUGHOUT, BOWEL SOUNDS PRESENT X4. GAIT IS STEADY. SOB WITH EXERTION. WEARS TRILOGY AT NIGHT AND WHILE SLEEPING. HAS HELPED WITH SOB THROUGHOUT THE DAY IN THE ED. SL IN RIGHT HAND IS CLEAR. HOME MEDS BROUGHT FOR PT. BLE AND ULE COVERED IN PSORIASIS PATCHES. FOLDS OF SKIN SHOW REDNESS, PT USES NYSTATIN ON THEM PRN AT HOME. 2+ PITTING EDEMA TO BLE. TELEMETRY IN PLACE. PT DENIES ANY PAIN AT THIS TIME. ORIENTED TO ROOM, CALL LIGHT IN PLACE. WILL CONTINUE TO MONITOR.
[2017-10-08 23:00] VITALS: BP 148/76
[2017-10-09 03:15] VITALS: BP 159/85
[2017-10-09 07:07] VITALS: BP 150/80
[2017-10-09 07:57] LABS: EOS # 0.2 (0.04-0.40); HEMATOCRIT 32.6 % (37.0-47.0); HEMOGLOBIN 9.5 g/dL (12.5-16.0); LYMPH# 2.6 (1.50-4.00); MEAN CELL VOLUME 86 fl (78-100); MEAN CORPUSCULAR HEMOGLOBIN 25 pg (27-31); MEAN PLATELET VOLUME 10.2 fl (7.4-10.4); MONO # 0.8 (0.20-0.80); PLATELET COUNT 225 K/mm3 (130-400); RED BLOOD COUNT 3.81 M/mm3 (4.10-5.30); RED CELL DISTRIBUTION WIDTH 16.3 % (11.5-14.5); WHITE BLOOD COUNT 8.5 K/mm3 (4.8-10.8)
[2017-10-09 07:58] LABS: MEAN CORPUSCULAR HGB CONC 29 g/dL (33-37)
[2017-10-09 08:44] LABS: BUN/CREATININE RATIO 22.2 (6.0-26.0); CALCIUM 8.7 mg/dL (8.4-10.2)
[2017-10-09] MEDS ORDERED: FUROSEMIDE20 MG PO (11:06)
[2017-10-09 11:15] VITALS: BP 166/79
--- NOTE | 2017-10-09 12:02 | NUR ---
Patient alert and oriented. Denies pain. States she's "feeling better." Oxygen saturation 95% on room air. Patient discharged to home. Discharge instructions provided. Patient verbalizes understanding and denies questions or needs. Daughter arrives to drive patient home. Out of facility via wheelchair to POV. Ambulates from door to POV without incident. Steady gait noted.
== END 2017-10-09 12:02 | disposition home or self-care (01) ==
LOC: ED 05:22 → MED/SURG 18:17
PROVIDERS: ADMIT Family Medicine
DX: I13.0 Hypertensive heart and chronic kidney disease with heart failure and stage 1 through stage 4 chronic kidney disease, or unspecified chronic kidney disease (principal); I50.1 Left ventricular failure, unspecified; E11.22 Type 2 diabetes mellitus with diabetic chronic kidney disease; N18.9 Chronic kidney disease, unspecified; E66.2 Morbid (severe) obesity with alveolar hypoventilation; G47.30 Sleep apnea, unspecified; E78.5 Hyperlipidemia, unspecified; Z86.73 Personal history of transient ischemic attack (TIA), and cerebral infarction without residual deficits; T38.3X6A Underdosing of insulin and oral hypoglycemic [antidiabetic] drugs, initial encounter; Z91.120 Patient's intentional underdosing of medication regimen due to financial hardship; I25.2 Old myocardial infarction; J44.9 Chronic obstructive pulmonary disease, unspecified; Z79.02 Long term (current) use of antithrombotics/antiplatelets; Z68.43 Body mass index [BMI] 50.0-59.9, adult; Z99.81 Dependence on supplemental oxygen; I27.81 Cor pulmonale (chronic); Z79.4 Long term (current) use of insulin; Z90.5 Acquired absence of kidney; Z85.528 Personal history of other malignant neoplasm of kidney; Z87.891 Personal history of nicotine dependence
CPT/HCPCS: G0378; J1644; J1815; J1940

== ENCOUNTER 2017-10-18 16:07 | Emergency (ER) | payer MEDICAID ==
[~2017-10-18 16:07] MED LIST changes: +FEOSOL325 MG PO; +HYDRALAZINE100 MG PO
[2017-10-18 16:31] LABS: EOS # 0.1 (0.04-0.40); EOS % 0.6 % (1.0-5.0); HEMATOCRIT 34.2 % (37.0-47.0); HEMOGLOBIN 9.9 g/dL (12.5-16.0); LYMPH# 1.8 (1.50-4.00); MEAN CELL VOLUME 86 fl (78-100); MEAN CORPUSCULAR HEMOGLOBIN 25 pg (27-31); MEAN PLATELET VOLUME 10.5 fl (7.4-10.4); MONO # 0.7 (0.20-0.80); NEU # 5.1 (1.40-6.50); PLATELET COUNT 197 K/mm3 (130-400); RED BLOOD COUNT 3.96 M/mm3 (4.10-5.30); RED CELL DISTRIBUTION WIDTH 16.1 % (11.5-14.5); WHITE BLOOD COUNT 7.7 K/mm3 (4.8-10.8)
[2017-10-18 16:32] LABS: MEAN CORPUSCULAR HGB CONC 29 g/dL (33-37)
[2017-10-18 16:42] LABS: ALBUMIN 3.3 g/dL (3.5-5.0); BUN/CREATININE RATIO 18.5 (6.0-26.0); CALCIUM 8.2 mg/dL (8.4-10.2); POTASSIUM 5.4 mmol/L (3.6-5.0); TOTAL BILIRUBIN 0.2 mg/dL (0.2-1.3); TOTAL PROTEIN 6.2 g/dL (6.3-8.2)
[2017-10-18 18:22] VITALS: BP 135/72
== END 2017-10-18 17:47 | disposition short-term general hospital (02) ==
LOC: ED 16:07
PROVIDERS: Physician Assistant
DX: J96.01 Acute respiratory failure with hypoxia (principal); I11.0 Hypertensive heart disease with heart failure; I50.9 Heart failure, unspecified; E78.5 Hyperlipidemia, unspecified; Z86.73 Personal history of transient ischemic attack (TIA), and cerebral infarction without residual deficits; J44.9 Chronic obstructive pulmonary disease, unspecified; E11.9 Type 2 diabetes mellitus without complications; Z85.528 Personal history of other malignant neoplasm of kidney; Z90.5 Acquired absence of kidney; Z87.891 Personal history of nicotine dependence; G47.30 Sleep apnea, unspecified; Z79.02 Long term (current) use of antithrombotics/antiplatelets; Z79.4 Long term (current) use of insulin
CPT/HCPCS: J7030

== ENCOUNTER → 2017-10-28 | Outpatient (CLI) | payer MEDICAID ==
[2017-10-18 18:22] VITALS: BP 135/72
[2017-10-28 14:08] LABS: HEMATOCRIT 33.6 % (37.0-47.0); HEMOGLOBIN 10.1 g/dL (12.5-16.0); MEAN PLATELET VOLUME 10.6 fl (7.4-10.4); RED BLOOD COUNT 4.04 M/mm3 (4.10-5.30)
[2017-10-28 14:19] LABS: BUN/CREATININE RATIO 27.7 (6.0-26.0); CALCIUM 8.1 mg/dL (8.4-10.2); POTASSIUM 4.4 mmol/L (3.6-5.0)
== END ==
LOC: LAB 13:50
PROVIDERS: Internal Medicine
DX: N18.3 Chronic kidney disease, stage 3 (moderate) (principal); N17.8 Other acute kidney failure; R80.8 Other proteinuria

== ENCOUNTER → 2018-01-10 | Outpatient (CLI) | payer MEDICAID ==
[2018-01-10 09:11] LABS: EOS # 0.2 (0.04-0.40); EOS % 2.1 % (1.0-5.0); HEMATOCRIT 35.1 % (37.0-47.0); HEMOGLOBIN 10.6 g/dL (12.5-16.0); LYMPH# 2.7 (1.50-4.00); MEAN CELL VOLUME 84 fl (78-100); MEAN CORPUSCULAR HEMOGLOBIN 26 pg (27-31); MEAN CORPUSCULAR HGB CONC 30 g/dL (33-37); MEAN PLATELET VOLUME 10.1 fl (7.4-10.4); MONO # 0.8 (0.20-0.80); NEU # 4.8 (1.40-6.50); PLATELET COUNT 235 K/mm3 (130-400); RED BLOOD COUNT 4.16 M/mm3 (4.10-5.30); RED CELL DISTRIBUTION WIDTH 16.6 % (11.5-14.5); WHITE BLOOD COUNT 8.6 K/mm3 (4.8-10.8)
[2018-01-10 09:16] LABS: BUN/CREATININE RATIO 19.7 (6.0-26.0); POTASSIUM 4.2 mmol/L (3.6-5.0)
[2018-01-12 12:37] LABS: PTH,INTACT 103.2 pg/mL (6.6-88.9)
== END ==
LOC: LAB 08:50
PROVIDERS: Internal Medicine
DX: R80.8 Other proteinuria (principal); E87.5 Hyperkalemia; N18.3 Chronic kidney disease, stage 3 (moderate); I10 Essential (primary) hypertension; E11.9 Type 2 diabetes mellitus without complications

== ENCOUNTER 2018-01-20 15:17 | Emergency (ER) | payer MEDICAID ==
[~2018-01-20 15:17] MED LIST changes: -PULMICORT0.25 MG/2; +PULMICORT0.25 MG/2 IH
[2018-01-20] MEDS ORDERED: LASIX20 M1 PO (15:31)
[2018-01-20 16:34] LABS: HEMATOCRIT 33.6 % (37.0-47.0); HEMOGLOBIN 10.3 g/dL (12.5-16.0); MEAN CELL VOLUME 84 fl (78-100); MEAN CORPUSCULAR HEMOGLOBIN 26 pg (27-31); MEAN CORPUSCULAR HGB CONC 31 g/dL (33-37); MEAN PLATELET VOLUME 10.1 fl (7.4-10.4); PLATELET COUNT 221 K/mm3 (130-400); RED BLOOD COUNT 4.01 M/mm3 (4.10-5.30); RED CELL DISTRIBUTION WIDTH 16.9 % (11.5-14.5); WHITE BLOOD COUNT 8.1 K/mm3 (4.8-10.8)
[2018-01-20 16:44] LABS: ALBUMIN 3.4 g/dL (3.5-5.0); BUN/CREATININE RATIO 19.9 (6.0-26.0); CALCIUM 8.3 mg/dL (8.4-10.2); POTASSIUM 3.7 mmol/L (3.6-5.0); TOTAL BILIRUBIN 0.2 mg/dL (0.2-1.3)
[2018-01-20 17:05] LABS: LYMPHOCYTE 18 % (20-51); MONOCYTE 12 % (3-10); NEUTROPHILS 68 % (42-75)
[2018-01-20 18:19] LABS: URINE APPEARANCE HAZY; URINE BILIRUBIN NEGATIVE (NEGATIVE); URINE BLOOD TRACE (NEGATIVE); URINE COLOR YELLOW; URINE GLUCOSE NEGATIVE (NEGATIVE); URINE KETONE NEGATIVE (NEGATIVE); URINE LEUKOCYTE ESTERASE NEGATIVE (NEGATIVE); URINE NITRATE NEGATIVE (NEGATIVE); URINE PROTEIN(semi-quant) 3+ mg/dL (NEGATIVE); URINE UROBILINOGEN NORMAL (NORMAL)
[2018-01-20] MEDS ORDERED: ZOFRAN ODT4 MG PO (21:17)
[2018-01-20 21:54] VITALS: BP 140/74
== END 2018-01-20 21:54 | disposition home or self-care (01) ==
LOC: ED 15:17
PROVIDERS: Physician Assistant
DX: R19.7 Diarrhea, unspecified (principal); E86.9 Volume depletion, unspecified; E11.22 Type 2 diabetes mellitus with diabetic chronic kidney disease; N18.9 Chronic kidney disease, unspecified; Z90.5 Acquired absence of kidney; Z86.73 Personal history of transient ischemic attack (TIA), and cerebral infarction without residual deficits; J44.9 Chronic obstructive pulmonary disease, unspecified; Z87.891 Personal history of nicotine dependence; Z85.528 Personal history of other malignant neoplasm of kidney; R21 Rash and other nonspecific skin eruption; R60.0 Localized edema; Z79.02 Long term (current) use of antithrombotics/antiplatelets; Z79.4 Long term (current) use of insulin
CPT/HCPCS: J2405; J7030

== ENCOUNTER 2018-01-22 23:50 | Emergency (ER) | payer MEDICAID ==
[~2018-01-22] VITALS: Ht 162.6 cm; Wt 142.3 kg
[~2018-01-22 23:50] MED LIST changes: +LASIX20 M1 PO; +ZOFRAN ODT4 MG PO
[2018-01-23] MEDS ORDERED: LEVEMIR FLEX100 U/ML SQ (00:02)
[2018-01-23] MEDS ORDERED: DESYREL 100MG100 MG PO (00:03)
[2018-01-23 01:07] LABS: EOS % 0.3 % (1.0-5.0); HEMATOCRIT 30.5 % (37.0-47.0); HEMOGLOBIN 9.4 g/dL (12.5-16.0); LYMPH# 1.9 (1.50-4.00); MEAN CELL VOLUME 83 fl (78-100); MEAN CORPUSCULAR HEMOGLOBIN 26 pg (27-31); MEAN CORPUSCULAR HGB CONC 31 g/dL (33-37); MONO # 0.8 (0.20-0.80); NEU # 6.2 (1.40-6.50); PLATELET COUNT 162 K/mm3 (130-400); RED BLOOD COUNT 3.69 M/mm3 (4.10-5.30); RED CELL DISTRIBUTION WIDTH 17.2 % (11.5-14.5); WHITE BLOOD COUNT 9.1 K/mm3 (4.8-10.8)
[2018-01-23 01:18] LABS: BUN/CREATININE RATIO 14.9 (6.0-26.0); CALCIUM 7.9 mg/dL (8.4-10.2); POTASSIUM 4.1 mmol/L (3.6-5.0)
[2018-01-23 01:37] LABS: URINE APPEARANCE HAZY; URINE BILIRUBIN NEGATIVE (NEGATIVE); URINE BLOOD TRACE (NEGATIVE); URINE COLOR YELLOW; URINE GLUCOSE 50 mg/dL mg/dL (NEGATIVE); URINE KETONE NEGATIVE (NEGATIVE); URINE LEUKOCYTE ESTERASE NEGATIVE (NEGATIVE); URINE NITRATE NEGATIVE (NEGATIVE); URINE PROTEIN(semi-quant) 3+ mg/dL (NEGATIVE); URINE UROBILINOGEN NORMAL (NORMAL)
[2018-01-23 01:38] LABS: URINE MUCUS PRESENT (NOT PRESENT)
[2018-01-23 09:05] LABS: EOS # 0.1 (0.04-0.40); EOS % 0.7 % (1.0-5.0); HEMATOCRIT 29.5 % (37.0-47.0); HEMOGLOBIN 8.8 g/dL (12.5-16.0); MEAN CELL VOLUME 83 fl (78-100); MEAN CORPUSCULAR HEMOGLOBIN 25 pg (27-31); MEAN CORPUSCULAR HGB CONC 30 g/dL (33-37); MEAN PLATELET VOLUME 10.4 fl (7.4-10.4); MONO # 0.8 (0.20-0.80); NEU # 4.6 (1.40-6.50); PLATELET COUNT 159 K/mm3 (130-400); RED BLOOD COUNT 3.54 M/mm3 (4.10-5.30); RED CELL DISTRIBUTION WIDTH 17.2 % (11.5-14.5); WHITE BLOOD COUNT 7.5 K/mm3 (4.8-10.8)
[2018-01-23 09:15] LABS: BUN/CREATININE RATIO 15.5 (6.0-26.0); CALCIUM 7.4 mg/dL (8.4-10.2); POTASSIUM 4.1 mmol/L (3.6-5.0)
[2018-01-23 09:49] VITALS: BP 108/56
== END 2018-01-23 10:05 | disposition short-term general hospital (02) ==
LOC: ED 23:50
PROVIDERS: Family Medicine; Nurse Practitioner Primary Care
DX: N17.9 Acute kidney failure, unspecified (principal); E86.9 Volume depletion, unspecified; E11.22 Type 2 diabetes mellitus with diabetic chronic kidney disease; I12.9 Hypertensive chronic kidney disease with stage 1 through stage 4 chronic kidney disease, or unspecified chronic kidney disease; N18.9 Chronic kidney disease, unspecified; Z87.891 Personal history of nicotine dependence; Z79.4 Long term (current) use of insulin; Z79.02 Long term (current) use of antithrombotics/antiplatelets; Z86.73 Personal history of transient ischemic attack (TIA), and cerebral infarction without residual deficits; J44.9 Chronic obstructive pulmonary disease, unspecified; Z90.5 Acquired absence of kidney; Z85.528 Personal history of other malignant neoplasm of kidney; I27.81 Cor pulmonale (chronic); L40.9 Psoriasis, unspecified; M25.561 Pain in right knee; M25.511 Pain in right shoulder; R79.89 Other specified abnormal findings of blood chemistry; R10.817 Generalized abdominal tenderness
CPT/HCPCS: J1815; J7030

== ENCOUNTER → 2018-01-30 | Outpatient (CLI) | payer MEDICAID ==
[2018-01-23 09:49] VITALS: BP 108/56
[~2018-01-30] MED LIST changes: +DESYREL 100MG100 MG PO; +LEVEMIR FLEX100 U/ML SQ
[2018-01-30 09:04] LABS: BUN/CREATININE RATIO 19.8 (6.0-26.0); CALCIUM 8.9 mg/dL (8.4-10.2); POTASSIUM 3.7 mmol/L (3.6-5.0)
== END ==
LOC: LAB 08:29
PROVIDERS: Internal Medicine
DX: N17.9 Acute kidney failure, unspecified (principal)

== ENCOUNTER 2018-02-24 04:05 | Emergency (ER) | payer MEDICAID ==
[~2018-02-24] VITALS: Ht 152.4 cm; Wt 145.5 kg
[2018-02-24 04:50] LABS: EOS # 0.2 (0.04-0.40); EOS % 1.3 % (1.0-5.0); HEMATOCRIT 36.1 % (37.0-47.0); HEMOGLOBIN 10.8 g/dL (12.5-16.0); MEAN CELL VOLUME 86 fl (78-100); MEAN CORPUSCULAR HEMOGLOBIN 26 pg (27-31); MEAN CORPUSCULAR HGB CONC 30 g/dL (33-37); MEAN PLATELET VOLUME 10.8 fl (7.4-10.4); PLATELET COUNT 300 K/mm3 (130-400); RED CELL DISTRIBUTION WIDTH 16.7 % (11.5-14.5); WHITE BLOOD COUNT 15.2 K/mm3 (4.8-10.8)
[2018-02-24 04:51] LABS: LYMPH# 4.7 (1.50-4.00); NEU # 9.1 (1.40-6.50)
[2018-02-24 05:04] LABS: ALBUMIN 3.7 g/dL (3.5-5.0); CALCIUM 8.3 mg/dL (8.4-10.2); POTASSIUM 4.5 mmol/L (3.6-5.0); TOTAL BILIRUBIN 0.4 mg/dL (0.2-1.3); TOTAL PROTEIN 7.4 g/dL (6.3-8.2)
[2018-02-24 05:06] LABS: D-DIMER 1.31 mg/L FEU (0.15-0.50)
[2018-02-24 05:10] LABS: TROPONIN-I < 0.03 ng/mL (0.00-0.06)
[2018-02-24 05:14] LABS: PH-URINE 6.5 (5.0 - 8.0); URINE APPEARANCE CLEAR; URINE BILIRUBIN NEGATIVE (NEGATIVE); URINE BLOOD NEGATIVE (NEGATIVE); URINE COLOR YELLOW; URINE KETONE NEGATIVE (NEGATIVE); URINE LEUKOCYTE ESTERASE TRACE (NEGATIVE); URINE NITRATE NEGATIVE (NEGATIVE); URINE PROTEIN(semi-quant) 3+ mg/dL (NEGATIVE); URINE UROBILINOGEN NORMAL (NORMAL)
[2018-02-24 05:35] VITALS: BP 184/84
== END 2018-02-24 05:35 | disposition short-term general hospital (02) ==
LOC: ED 04:05
PROVIDERS: Physician Assistant
DX: J44.1 Chronic obstructive pulmonary disease with (acute) exacerbation (principal); E11.9 Type 2 diabetes mellitus without complications; Z79.4 Long term (current) use of insulin; Z87.891 Personal history of nicotine dependence; I50.9 Heart failure, unspecified; Z90.5 Acquired absence of kidney; Z79.02 Long term (current) use of antithrombotics/antiplatelets; Z79.899 Other long term (current) drug therapy
CPT/HCPCS: J1940

== ENCOUNTER → 2018-03-03 | Outpatient (CLI) | payer MEDICAID ==
[2018-02-24 05:35] VITALS: BP 184/84
[2018-03-03 09:01] LABS: BUN/CREATININE RATIO 31.4 (6.0-26.0); CALCIUM 8.4 mg/dL (8.4-10.2); POTASSIUM 4.4 mmol/L (3.6-5.0)
== END ==
LOC: LAB 08:15
DX: I50.23 Acute on chronic systolic (congestive) heart failure (principal)

== ENCOUNTER → 2018-03-10 | Outpatient (CLI) | payer MEDICAID ==
[2018-02-24 05:35] VITALS: BP 184/84
[2018-03-10 09:20] LABS: EOS # 0.2 (0.04-0.40); EOS % 2.2 % (1.0-5.0); HEMATOCRIT 32.5 % (37.0-47.0); HEMOGLOBIN 9.8 g/dL (12.5-16.0); LYMPH# 1.9 (1.50-4.00); MEAN CELL VOLUME 84 fl (78-100); MEAN CORPUSCULAR HEMOGLOBIN 26 pg (27-31); MEAN CORPUSCULAR HGB CONC 30 g/dL (33-37); MONO # 0.8 (0.20-0.80); NEU # 4.5 (1.40-6.50); PLATELET COUNT 220 K/mm3 (130-400); RED BLOOD COUNT 3.85 M/mm3 (4.10-5.30); RED CELL DISTRIBUTION WIDTH 16.4 % (11.5-14.5); WHITE BLOOD COUNT 7.4 K/mm3 (4.8-10.8)
[2018-03-10 09:49] LABS: ALBUMIN 3.6 g/dL (3.5-5.0); BUN/CREATININE RATIO 28.4 (6.0-26.0); POTASSIUM 4.6 mmol/L (3.6-5.0); TOTAL BILIRUBIN 0.3 mg/dL (0.2-1.3); TOTAL PROTEIN 6.9 g/dL (6.3-8.2)
== END ==
LOC: LAB 08:10
DX: I10 Essential (primary) hypertension (principal); E11.9 Type 2 diabetes mellitus without complications

== ENCOUNTER → 2018-03-24 | Outpatient (CLI) | payer MEDICAID ==
[2018-02-24 05:35] VITALS: BP 184/84
[2018-03-24 08:41] LABS: EOS # 0.1 (0.04-0.40); EOS % 1.5 % (1.0-5.0); HEMATOCRIT 27.4 % (37.0-47.0); HEMOGLOBIN 8.1 g/dL (12.5-16.0); LYMPH# 2.2 (1.50-4.00); MEAN CELL VOLUME 86 fl (78-100); MEAN CORPUSCULAR HEMOGLOBIN 26 pg (27-31); MEAN CORPUSCULAR HGB CONC 30 g/dL (33-37); MEAN PLATELET VOLUME 10.1 fl (7.4-10.4); MONO # 0.8 (0.20-0.80); NEU # 4.4 (1.40-6.50); PLATELET COUNT 215 K/mm3 (130-400); RED BLOOD COUNT 3.18 M/mm3 (4.10-5.30); RED CELL DISTRIBUTION WIDTH 16.6 % (11.5-14.5); WHITE BLOOD COUNT 7.5 K/mm3 (4.8-10.8)
[2018-03-24 09:02] LABS: ALBUMIN 3.4 g/dL (3.5-5.0); BUN/CREATININE RATIO 24.1 (6.0-26.0); CALCIUM 8.4 mg/dL (8.4-10.2); POTASSIUM 4.5 mmol/L (3.6-5.0); TOTAL BILIRUBIN 0.3 mg/dL (0.2-1.3); TOTAL PROTEIN 6.4 g/dL (6.3-8.2)
== END ==
LOC: LAB 08:18
PROVIDERS: Internal Medicine
DX: I10 Essential (primary) hypertension (principal); E11.9 Type 2 diabetes mellitus without complications

== ENCOUNTER → 2018-04-07 | Outpatient (CLI) | payer MEDICAID ==
[2018-04-07 09:01] LABS: EOS # 0.2 (0.04-0.40); EOS % 2.2 % (1.0-5.0); HEMATOCRIT 27.1 % (37.0-47.0); LYMPH# 1.9 (1.50-4.00); MEAN CELL VOLUME 88 fl (78-100); MEAN CORPUSCULAR HEMOGLOBIN 26 pg (27-31); MEAN CORPUSCULAR HGB CONC 30 g/dL (33-37); MEAN PLATELET VOLUME 10.3 fl (7.4-10.4); MONO # 0.6 (0.20-0.80); NEU # 4.5 (1.40-6.50); PLATELET COUNT 211 K/mm3 (130-400); RED BLOOD COUNT 3.08 M/mm3 (4.10-5.30); RED CELL DISTRIBUTION WIDTH 15.9 % (11.5-14.5); WHITE BLOOD COUNT 7.2 K/mm3 (4.8-10.8)
[2018-04-07 09:11] LABS: ALBUMIN 3.5 g/dL (3.5-5.0); BUN/CREATININE RATIO 26.2 (6.0-26.0); CALCIUM 8.7 mg/dL (8.4-10.2); POTASSIUM 4.7 mmol/L (3.6-5.0); TOTAL BILIRUBIN 0.3 mg/dL (0.2-1.3); TOTAL PROTEIN 6.7 g/dL (6.3-8.2)
== END ==
LOC: LAB 08:41
PROVIDERS: Internal Medicine
DX: E11.22 Type 2 diabetes mellitus with diabetic chronic kidney disease (principal); I13.0 Hypertensive heart and chronic kidney disease with heart failure and stage 1 through stage 4 chronic kidney disease, or unspecified chronic kidney disease; N18.9 Chronic kidney disease, unspecified

== ENCOUNTER → 2018-04-14 | Outpatient (CLI) | payer MEDICAID | LOC: LAB 10:17 | PROVIDERS: Internal Medicine | DX: R80.8 Other proteinuria (principal) ==

== ENCOUNTER → 2018-04-18 | Outpatient (CLI) | payer MEDICAID ==
[2018-04-18 12:55] LABS: ALBUMIN 3.6 g/dL (3.5-5.0); BUN/CREATININE RATIO 23.9 (6.0-26.0); POTASSIUM 4.6 mmol/L (3.6-5.0); TOTAL BILIRUBIN 0.4 mg/dL (0.2-1.3); TOTAL PROTEIN 6.6 g/dL (6.3-8.2)
== END ==
LOC: LAB 11:50
DX: Z12.11 Encounter for screening for malignant neoplasm of colon (principal); D12.0 Benign neoplasm of cecum; Z80.0 Family history of malignant neoplasm of digestive organs

== ENCOUNTER → 2018-04-20 | Outpatient (CLI) | payer MEDICAID | LOC: RAD 07:37 | DX: N28.1 Cyst of kidney, acquired (principal); D64.9 Anemia, unspecified; K58.1 Irritable bowel syndrome with constipation ==

== ENCOUNTER → 2018-04-24 | Outpatient (CLI) | payer MEDICAID | LOC: LAB 13:08 | DX: Z12.11 Encounter for screening for malignant neoplasm of colon (principal); D12.0 Benign neoplasm of cecum; Z80.0 Family history of malignant neoplasm of digestive organs ==

== ENCOUNTER → 2018-05-02 | Day surgery (SDC) | payer MEDICAID | LOC: MSO 14:05 | DX: D50.9 Iron deficiency anemia, unspecified (principal); D12.2 Benign neoplasm of ascending colon; D12.0 Benign neoplasm of cecum; Z86.010 Personal history of colon polyps; E11.22 Type 2 diabetes mellitus with diabetic chronic kidney disease; I13.0 Hypertensive heart and chronic kidney disease with heart failure and stage 1 through stage 4 chronic kidney disease, or unspecified chronic kidney disease; N18.9 Chronic kidney disease, unspecified; I50.9 Heart failure, unspecified; J44.9 Chronic obstructive pulmonary disease, unspecified; G47.33 Obstructive sleep apnea (adult) (pediatric); I25.2 Old myocardial infarction; Z79.899 Other long term (current) drug therapy; Z79.02 Long term (current) use of antithrombotics/antiplatelets; Z86.73 Personal history of transient ischemic attack (TIA), and cerebral infarction without residual deficits; Z85.43 Personal history of malignant neoplasm of ovary; Z85.528 Personal history of other malignant neoplasm of kidney | CPT/HCPCS: 00813; J2704; J7030 ==

== ENCOUNTER → 2018-05-12 | Outpatient (CLI) | payer MEDICAID ==
[2018-05-12 09:40] LABS: EOS # 0.2 (0.04-0.40); EOS % 2.9 % (1.0-5.0); HEMATOCRIT 30.3 % (37.0-47.0); HEMOGLOBIN 9.1 g/dL (12.5-16.0); LYMPH# 1.8 (1.50-4.00); MEAN CELL VOLUME 86 fl (78-100); MEAN CORPUSCULAR HEMOGLOBIN 26 pg (27-31); MEAN CORPUSCULAR HGB CONC 30 g/dL (33-37); MEAN PLATELET VOLUME 10.9 fl (7.4-10.4); MONO # 0.8 (0.20-0.80); NEU # 4.4 (1.40-6.50); PLATELET COUNT 210 K/mm3 (130-400); RED BLOOD COUNT 3.54 M/mm3 (4.10-5.30); RED CELL DISTRIBUTION WIDTH 15.5 % (11.5-14.5); WHITE BLOOD COUNT 7.3 K/mm3 (4.8-10.8)
[2018-05-12 10:04] LABS: ALBUMIN 3.6 g/dL (3.5-5.0); CALCIUM 8.9 mg/dL (8.4-10.2); TOTAL BILIRUBIN 0.3 mg/dL (0.2-1.3); TOTAL PROTEIN 6.7 g/dL (6.3-8.2)
[2018-05-12 10:14] LABS: POTASSIUM 4.6 mmol/L (3.6-5.0)
== END ==
LOC: LAB 09:21
PROVIDERS: Internal Medicine
DX: E11.22 Type 2 diabetes mellitus with diabetic chronic kidney disease (principal); I13.0 Hypertensive heart and chronic kidney disease with heart failure and stage 1 through stage 4 chronic kidney disease, or unspecified chronic kidney disease; N18.9 Chronic kidney disease, unspecified; K90.9 Intestinal malabsorption, unspecified

== ENCOUNTER 2018-06-05 10:14 | Emergency (ER) | payer MEDICAID ==
[~2018-06-05] VITALS: Wt 140.8 kg
[~2018-06-05 10:14] MED LIST changes: -LASIX20 M1 PO; -PULMICORT0.25 MG/2 IH; +PULMICORT180 MCG/Ac IH; +VITAMIN D5000 UNIT PO; -VITAMIN D50000 I2 PO
[2018-06-05] MEDS ORDERED: IMODIUM A-D2 M2 PO (10:26)
[2018-06-05] MEDS ORDERED: VITAMIN C PURE500 M1 PO (10:27)
[2018-06-05] MEDS ORDERED: ANORO ELLIPTA1 POW IH (10:29)
[2018-06-05] MEDS ORDERED: ASPIR LOW81 MG PO (10:29)
[2018-06-05] MEDS ORDERED: NOVOLOG 100U100 U/ML SC (10:32)
[2018-06-05 10:39] LABS: EOS # 0.2 (0.04-0.40); EOS % 2.5 % (1.0-5.0); HEMATOCRIT 31.8 % (37.0-47.0); HEMOGLOBIN 9.5 g/dL (12.5-16.0); LYMPH# 1.8 (1.50-4.00); MEAN CELL VOLUME 85 fl (78-100); MEAN CORPUSCULAR HEMOGLOBIN 25 pg (27-31); MEAN CORPUSCULAR HGB CONC 30 g/dL (33-37); MEAN PLATELET VOLUME 10.2 fl (7.4-10.4); MONO # 0.8 (0.20-0.80); NEU # 4.9 (1.40-6.50); PLATELET COUNT 192 K/mm3 (130-400); RED BLOOD COUNT 3.76 M/mm3 (4.10-5.30); RED CELL DISTRIBUTION WIDTH 15.3 % (11.5-14.5); WHITE BLOOD COUNT 7.7 K/mm3 (4.8-10.8)
[2018-06-05 10:55] LABS: ALBUMIN 3.6 g/dL (3.5-5.0); POTASSIUM 5.1 mmol/L (3.6-5.0); TOTAL BILIRUBIN 0.4 mg/dL (0.2-1.3); TOTAL PROTEIN 6.5 g/dL (6.3-8.2)
[2018-06-05 11:07] LABS: D-DIMER 0.97 mg/L FEU (0.15-0.50)
[2018-06-05] MEDS ORDERED: GOOD NEIGHBOR M25 M1 PO (12:18)
[2018-06-05 12:40] VITALS: BP 172/65
== END 2018-06-05 12:40 | disposition home or self-care (01) ==
LOC: ED 10:14
PROVIDERS: Nurse Practitioner Primary Care
DX: R42 Dizziness and giddiness (principal); I13.0 Hypertensive heart and chronic kidney disease with heart failure and stage 1 through stage 4 chronic kidney disease, or unspecified chronic kidney disease; I50.9 Heart failure, unspecified; N18.9 Chronic kidney disease, unspecified; Z79.82 Long term (current) use of aspirin; Z79.02 Long term (current) use of antithrombotics/antiplatelets; Z79.899 Other long term (current) drug therapy; Z79.4 Long term (current) use of insulin; R01.1 Cardiac murmur, unspecified; Z86.73 Personal history of transient ischemic attack (TIA), and cerebral infarction without residual deficits; Z90.5 Acquired absence of kidney
CPT/HCPCS: J7040

== ENCOUNTER → 2018-06-20 | Outpatient (CLI) | payer MEDICAID ==
[2018-06-05 12:40] VITALS: BP 172/65
[~2018-06-20] MED LIST changes: +ASPIR LOW81 MG PO; +GOOD NEIGHBOR M25 M1 PO; +IMODIUM A-D2 M2 PO; +NOVOLOG 100U100 U/ML SC; +VITAMIN C PURE500 M1 PO
[2018-06-20 09:02] LABS: HEMATOCRIT 33.3 % (37.0-47.0); HEMOGLOBIN 9.7 g/dL (12.5-16.0); MEAN PLATELET VOLUME 10.8 fl (7.4-10.4); RED BLOOD COUNT 3.91 M/mm3 (4.10-5.30); RED CELL DISTRIBUTION WIDTH 15.6 % (11.5-14.5); WHITE BLOOD COUNT 8.3 K/mm3 (4.8-10.8)
[2018-06-20 09:08] LABS: CALCIUM 8.9 mg/dL (8.4-10.2); POTASSIUM 4.6 mmol/L (3.6-5.0)
== END ==
LOC: LAB 08:12
PROVIDERS: Internal Medicine
DX: I12.9 Hypertensive chronic kidney disease with stage 1 through stage 4 chronic kidney disease, or unspecified chronic kidney disease (principal); N18.3 Chronic kidney disease, stage 3 (moderate); E87.5 Hyperkalemia

== ENCOUNTER → 2018-07-03 | Outpatient (CLI) | payer MEDICAID ==
[2018-06-05 12:40] VITALS: BP 172/65
[2018-07-03 08:16] LABS: HEMATOCRIT 31.7 % (37.0-47.0); HEMOGLOBIN 9.4 g/dL (12.5-16.0); MEAN PLATELET VOLUME 10.6 fl (7.4-10.4); RED BLOOD COUNT 3.7 M/mm3 (4.10-5.30); RED CELL DISTRIBUTION WIDTH 15.5 % (11.5-14.5); WHITE BLOOD COUNT 7.3 K/mm3 (4.8-10.8)
[2018-07-03 08:54] LABS: CALCIUM 8.9 mg/dL (8.4-10.2); POTASSIUM 4.5 mmol/L (3.6-5.0)
== END ==
LOC: LAB 07:47
PROVIDERS: Internal Medicine
DX: E11.22 Type 2 diabetes mellitus with diabetic chronic kidney disease (principal); I12.9 Hypertensive chronic kidney disease with stage 1 through stage 4 chronic kidney disease, or unspecified chronic kidney disease; N18.3 Chronic kidney disease, stage 3 (moderate); D50.9 Iron deficiency anemia, unspecified

== ENCOUNTER → 2018-08-10 | Outpatient (CLI) | payer MEDICAID ==
[2018-08-10 09:14] LABS: ALBUMIN 3.9 g/dL (3.5-5.0); CALCIUM 9.3 mg/dL (8.4-10.2); HEMATOCRIT 31.9 % (37.0-47.0); HEMOGLOBIN 9.6 g/dL (12.5-16.0); MEAN CELL VOLUME 84 fl (78-100); MEAN CORPUSCULAR HEMOGLOBIN 25 pg (27-31); MEAN CORPUSCULAR HGB CONC 30 g/dL (33-37); MEAN PLATELET VOLUME 10.9 fl (7.4-10.4); PLATELET COUNT 200 K/mm3 (130-400); POTASSIUM 4.8 mmol/L (3.6-5.0); RED CELL DISTRIBUTION WIDTH 16.2 % (11.5-14.5); TOTAL BILIRUBIN 0.3 mg/dL (0.2-1.3); TOTAL PROTEIN 6.8 g/dL (6.3-8.2); WHITE BLOOD COUNT 7.3 K/mm3 (4.8-10.8)
[2018-08-10 10:06] LABS: LYMPHOCYTE 24 % (20-51); MONOCYTE 10 % (3-10); NEUTROPHILS 65 % (42-75)
== END ==
LOC: LAB 08:37
PROVIDERS: Internal Medicine
DX: I13.0 Hypertensive heart and chronic kidney disease with heart failure and stage 1 through stage 4 chronic kidney disease, or unspecified chronic kidney disease (principal); E11.22 Type 2 diabetes mellitus with diabetic chronic kidney disease; N18.9 Chronic kidney disease, unspecified; I50.30 Unspecified diastolic (congestive) heart failure; K90.9 Intestinal malabsorption, unspecified

== ENCOUNTER 2018-08-22 18:50 | Emergency (ER) | payer MEDICAID ==
[~2018-08-22] VITALS: Ht 165.1 cm; Wt 145.6 kg
[2018-08-22] MEDS ORDERED: ZESTRIL5 M1 PO (19:01)
[2018-08-22 19:49] LABS: EOS # 0.2 (0.04-0.40); EOS % 2.4 % (1.0-5.0); HEMATOCRIT 29.9 % (37.0-47.0); LYMPH# 1.7 (1.50-4.00); MEAN CELL VOLUME 84 fl (78-100); MEAN CORPUSCULAR HEMOGLOBIN 25 pg (27-31); MEAN CORPUSCULAR HGB CONC 30 g/dL (33-37); MEAN PLATELET VOLUME 10.4 fl (7.4-10.4); MONO # 0.7 (0.20-0.80); NEU # 4.9 (1.40-6.50); PLATELET COUNT 180 K/mm3 (130-400); RED BLOOD COUNT 3.56 M/mm3 (4.10-5.30); RED CELL DISTRIBUTION WIDTH 15.7 % (11.5-14.5); WHITE BLOOD COUNT 7.5 K/mm3 (4.8-10.8)
[2018-08-22 20:00] LABS: ALBUMIN 3.7 g/dL (3.5-5.0); CALCIUM 8.8 mg/dL (8.4-10.2); POTASSIUM 4.9 mmol/L (3.6-5.0); TOTAL BILIRUBIN 0.3 mg/dL (0.2-1.3); TOTAL PROTEIN 6.4 g/dL (6.3-8.2)
[2018-08-22 20:09] LABS: CKMB ISOENZYME 2.9 ng/mL (0.6-3.5); TROPONIN-I < 0.03 ng/mL (0.00-0.06)
[2018-08-23 00:25] VITALS: BP 145/60
== END 2018-08-23 00:25 | disposition short-term general hospital (02) ==
LOC: ED 18:50
PROVIDERS: Nurse Practitioner Family
DX: I11.0 Hypertensive heart disease with heart failure (principal); I50.9 Heart failure, unspecified; E11.9 Type 2 diabetes mellitus without complications; Z79.4 Long term (current) use of insulin; J44.9 Chronic obstructive pulmonary disease, unspecified; Z79.82 Long term (current) use of aspirin; Z87.891 Personal history of nicotine dependence; Z79.02 Long term (current) use of antithrombotics/antiplatelets; Z86.73 Personal history of transient ischemic attack (TIA), and cerebral infarction without residual deficits; Z85.43 Personal history of malignant neoplasm of ovary; Z85.528 Personal history of other malignant neoplasm of kidney; Z90.5 Acquired absence of kidney; I25.10 Atherosclerotic heart disease of native coronary artery without angina pectoris; E66.9 Obesity, unspecified; Z68.43 Body mass index [BMI] 50.0-59.9, adult
CPT/HCPCS: J2405; J7030

== ENCOUNTER 2018-08-28 01:38 | Emergency (ER) | payer MEDICAID ==
[~2018-08-28 01:38] MED LIST changes: +ZESTRIL5 M1 PO
[2018-08-28] MEDS ORDERED: CIPRO 500MG TA500 MG PO (01:52)
[2018-08-28] MEDS ORDERED: IRON90 MG PO (01:52)
[2018-08-28 02:42] LABS: EOS # 0.3 (0.04-0.40); EOS % 3.4 % (1.0-5.0); HEMATOCRIT 30.3 % (37.0-47.0); HEMOGLOBIN 9.2 g/dL (12.5-16.0); LYMPH# 2.3 (1.50-4.00); MEAN CELL VOLUME 85 fl (78-100); MEAN CORPUSCULAR HEMOGLOBIN 26 pg (27-31); MEAN CORPUSCULAR HGB CONC 30 g/dL (33-37); MEAN PLATELET VOLUME 10.3 fl (7.4-10.4); MONO # 0.8 (0.20-0.80); NEU # 4.9 (1.40-6.50); PLATELET COUNT 188 K/mm3 (130-400); RED BLOOD COUNT 3.56 M/mm3 (4.10-5.30); RED CELL DISTRIBUTION WIDTH 15.9 % (11.5-14.5); WHITE BLOOD COUNT 8.4 K/mm3 (4.8-10.8)
[2018-08-28 02:51] LABS: ALBUMIN 3.7 g/dL (3.5-5.0); CALCIUM 9.1 mg/dL (8.4-10.2); POTASSIUM 4.7 mmol/L (3.6-5.0); TOTAL BILIRUBIN 0.3 mg/dL (0.2-1.3); TOTAL PROTEIN 6.4 g/dL (6.3-8.2)
[2018-08-28 03:19] LABS: URINE APPEARANCE HAZY; URINE BILIRUBIN NEGATIVE (NEGATIVE); URINE BLOOD TRACE (NEGATIVE); URINE COLOR YELLOW; URINE GLUCOSE 50 mg/dL mg/dL (NEGATIVE); URINE KETONE NEGATIVE (NEGATIVE); URINE NITRATE NEGATIVE (NEGATIVE); URINE PROTEIN(semi-quant) 3+ mg/dL (NEGATIVE); URINE UROBILINOGEN NORMAL (NORMAL)
[2018-08-28 03:20] LABS: URINE LEUKOCYTE ESTERASE NEGATIVE (NEGATIVE)
[2018-08-28] MEDS ORDERED: NORCO 325 MG-51 TA1 PO (03:34)
[2018-08-28 03:40] VITALS: BP 158/77
== END 2018-08-28 03:40 | disposition home or self-care (01) ==
LOC: ED 01:38
PROVIDERS: Family Medicine
DX: R07.81 Pleurodynia (principal); M54.5 Low back pain; E11.22 Type 2 diabetes mellitus with diabetic chronic kidney disease; I13.10 Hypertensive heart and chronic kidney disease without heart failure, with stage 1 through stage 4 chronic kidney disease, or unspecified chronic kidney disease; I51.9 Heart disease, unspecified; N18.9 Chronic kidney disease, unspecified; Z87.891 Personal history of nicotine dependence; Z79.4 Long term (current) use of insulin; Z79.82 Long term (current) use of aspirin; Z79.02 Long term (current) use of antithrombotics/antiplatelets; Z79.899 Other long term (current) drug therapy; Z85.528 Personal history of other malignant neoplasm of kidney; Z90.5 Acquired absence of kidney; E78.5 Hyperlipidemia, unspecified

== ENCOUNTER → 2018-10-24 | Outpatient (CLI) | payer MEDICARE, MEDICAID ==
[~2018-10-24] MED LIST changes: +CIPRO 500MG TA500 MG PO; +IRON90 MG PO
[2018-10-24 12:50] LABS: HEMATOCRIT 32.7 % (37.0-47.0); HEMOGLOBIN 9.9 g/dL (12.5-16.0); MEAN PLATELET VOLUME 10.6 fl (7.4-10.4); RED BLOOD COUNT 3.84 M/mm3 (4.10-5.30); WHITE BLOOD COUNT 10.8 K/mm3 (4.8-10.8)
[2018-10-24 13:29] LABS: POTASSIUM 4.4 mmol/L (3.6-5.0)
== END ==
LOC: LAB 12:28 → RAD 12:28
PROVIDERS: Internal Medicine
DX: M17.12 Unilateral primary osteoarthritis, left knee (principal); Q74.1 Congenital malformation of knee; N18.3 Chronic kidney disease, stage 3 (moderate); D50.9 Iron deficiency anemia, unspecified; R80.8 Other proteinuria

== ENCOUNTER 2018-11-17 11:30 | Outpatient (RCR) | payer MEDICARE, MEDICAID | END 2018-11-17 12:00 | disposition home or self-care (01) | LOC: PT 11:30 | DX: M25.562 Pain in left knee (principal) ==

== ENCOUNTER → 2018-11-23 | Outpatient (CLI) | payer MEDICARE ==
[2018-11-23 10:50] LABS: POTASSIUM 5.6 mmol/L (3.6-5.0)
== END ==
LOC: LAB 10:19
PROVIDERS: Internal Medicine
DX: E11.22 Type 2 diabetes mellitus with diabetic chronic kidney disease (principal); I12.9 Hypertensive chronic kidney disease with stage 1 through stage 4 chronic kidney disease, or unspecified chronic kidney disease; N18.3 Chronic kidney disease, stage 3 (moderate); K90.9 Intestinal malabsorption, unspecified

== ENCOUNTER → 2018-11-27 | Outpatient (CLI) | payer MEDICARE ==
[2018-11-27 09:42] LABS: CALCIUM 9.2 mg/dL (8.4-10.2)
== END ==
LOC: LAB 08:47
PROVIDERS: Internal Medicine
DX: N18.3 Chronic kidney disease, stage 3 (moderate) (principal)

== ENCOUNTER 2019-01-29 23:45 | Emergency (ER) | payer MEDICARE ==
[2019-01-30 00:09] LABS: BASO # 0.1 (0.02-0.10); EOS # 0.4 (0.04-0.40); EOS % 2.3 % (1.0-5.0); HEMATOCRIT 38.1 % (37.0-47.0); HEMOGLOBIN 11.1 g/dL (12.5-16.0); MEAN CELL VOLUME 89 fl (78-100); MEAN CORPUSCULAR HEMOGLOBIN 26 pg (27-31); MEAN PLATELET VOLUME 10.8 fl (7.4-10.4); NEU # 8.5 (1.40-6.50); PLATELET COUNT 277 K/mm3 (130-400); RED BLOOD COUNT 4.26 M/mm3 (4.10-5.30); RED CELL DISTRIBUTION WIDTH 14.7 % (11.5-14.5)
[2019-01-30 00:11] LABS: LYMPH# 7.7 (1.50-4.00); MEAN CORPUSCULAR HGB CONC 29 g/dL (33-37)
[2019-01-30 00:27] LABS: ALBUMIN 3.4 g/dL (3.5-5.0); CALCIUM 8.7 mg/dL (8.4-10.2); POTASSIUM 5.6 mmol/L (3.5-5.1); TOTAL BILIRUBIN 0.2 mg/dL (0.2-1.2); TOTAL PROTEIN 6.7 g/dL (6.4-8.3); TROPONIN-I 0.03 ng/mL (<0.030)
[2019-01-30] MEDS ORDERED: CLOPIDOGREL PO (00:59)
[2019-01-30] MEDS ORDERED: NYAMYC100000 U/G TP (00:59)
[2019-01-30] MEDS ORDERED: CHILDREN'S ASPI81 M1 PO (01:00)
[2019-01-30] MEDS ORDERED: FEOSOL325 MG PO (01:01)
[2019-01-30] MEDS ORDERED: TOPROL XL100 MG PO (01:01)
[2019-01-30] MEDS ORDERED: LASIX40 M1 PO (01:01)
[2019-01-30] MEDS ORDERED: VITAMIN D50000 UNIT PO (01:02)
[2019-01-30] MEDS ORDERED: ZESTRIL5 M1 PO (01:02)
[2019-01-30 01:35] VITALS: BP 160/107
[2019-01-30 01:44] LABS: D-DIMER 1.58 mg/L FEU (0.15-0.50)
[2019-01-30 01:44] LABS: PH-URINE 5.5 (5.0 - 8.0); URINE APPEARANCE CLOUDY; URINE BILIRUBIN NEGATIVE (NEGATIVE); URINE COLOR YELLOW; URINE KETONE NEGATIVE (NEGATIVE); URINE NITRATE NEGATIVE (NEGATIVE); URINE PROTEIN(semi-quant) 3+ mg/dL (NEGATIVE); URINE UROBILINOGEN NORMAL (NORMAL)
[2019-01-30 01:45] LABS: URINE BLOOD 50 ery/uL (NEGATIVE); URINE LEUKOCYTE ESTERASE NEGATIVE (NEGATIVE)
== END 2019-01-30 01:35 | disposition short-term general hospital (02) ==
LOC: ED 23:45
PROVIDERS: Nurse Practitioner
DX: R06.03 Acute respiratory distress (principal); E11.9 Type 2 diabetes mellitus without complications; I50.9 Heart failure, unspecified; J44.9 Chronic obstructive pulmonary disease, unspecified; Z79.4 Long term (current) use of insulin; Z85.528 Personal history of other malignant neoplasm of kidney; Z87.891 Personal history of nicotine dependence; Z79.02 Long term (current) use of antithrombotics/antiplatelets; Z79.82 Long term (current) use of aspirin
CPT/HCPCS: J1940

== ENCOUNTER → 2019-02-19 | Outpatient (CLI) | payer MEDICARE ==
[2019-01-30 01:35] VITALS: BP 160/107
[~2019-02-19] MED LIST changes: +CHILDREN'S ASPI81 M1 PO; +NYAMYC100000 U/G TP; +TOPROL XL100 MG PO
[2019-02-19 08:47] LABS: EOS # 0.2 (0.04-0.40); EOS % 3.5 % (1.0-5.0); HEMATOCRIT 31.2 % (37.0-47.0); HEMOGLOBIN 9.1 g/dL (12.5-16.0); LYMPH# 1.6 (1.50-4.00); MEAN CELL VOLUME 88 fl (78-100); MEAN CORPUSCULAR HEMOGLOBIN 26 pg (27-31); MEAN PLATELET VOLUME 10.1 fl (7.4-10.4); MONO # 0.5 (0.20-0.80); NEU # 3.4 (1.40-6.50); PLATELET COUNT 169 K/mm3 (130-400); RED BLOOD COUNT 3.53 M/mm3 (4.10-5.30); RED CELL DISTRIBUTION WIDTH 14.5 % (11.5-14.5); WHITE BLOOD COUNT 5.7 K/mm3 (4.8-10.8)
[2019-02-19 08:56] LABS: MEAN CORPUSCULAR HGB CONC 29 g/dL (33-37)
[2019-02-19 09:38] LABS: CALCIUM 9.1 mg/dL (8.3-10.5); POTASSIUM 4.8 mmol/L (3.5-5.1)
== END ==
LOC: LAB 08:17
PROVIDERS: Internal Medicine
DX: D50.9 Iron deficiency anemia, unspecified (principal); N18.9 Chronic kidney disease, unspecified

== ENCOUNTER → 2019-02-21 | Outpatient (CLI) | payer MEDICARE ==
[2019-01-30 01:35] VITALS: BP 160/107
[2019-02-21 14:26] LABS: CALCIUM 9.7 mg/dL (8.3-10.5); POTASSIUM 5.1 mmol/L (3.5-5.1)
== END ==
LOC: LAB 13:47
PROVIDERS: Internal Medicine
DX: N18.3 Chronic kidney disease, stage 3 (moderate) (principal)

== ENCOUNTER → 2019-02-27 | Outpatient (CLI) | payer MEDICARE ==
[2019-01-30 01:35] VITALS: BP 160/107
== END ==
LOC: MAMMO 02-23 10:00
DX: Z12.31 Encounter for screening mammogram for malignant neoplasm of breast (principal); R92.0 Mammographic microcalcification found on diagnostic imaging of breast

== ENCOUNTER → 2019-03-08 | Outpatient (CLI) | payer MEDICARE ==
[2019-03-08 13:23] LABS: HEMOGLOBIN 9.6 g/dL (12.5-16.0)
[2019-03-08 13:26] LABS: POTASSIUM 5.2 mmol/L (3.5-5.1)
[2019-03-08 13:28] LABS: CALCIUM 10.1 mg/dL (8.3-10.5)
[2019-03-08 22:31] LABS: HEPATITIS B SURFACE ANTIBODY <2.0 (()); HEPATITIS B SURFACE ANTIGEN Negative (Negative)
== END ==
LOC: MAMMO 12:44
PROVIDERS: Internal Medicine Nephrology
DX: R92.0 Mammographic microcalcification found on diagnostic imaging of breast (principal); N18.3 Chronic kidney disease, stage 3 (moderate); I15.8 Other secondary hypertension; D50.9 Iron deficiency anemia, unspecified

== ENCOUNTER → 2019-05-03 | Outpatient (CLI) | payer MEDICARE | LOC: RAD 09:23 | DX: R91.8 Other nonspecific abnormal finding of lung field (principal); R05 Cough; R06.02 Shortness of breath ==

== ENCOUNTER → 2019-05-24 | Outpatient (CLI) | payer MEDICARE ==
[2019-05-24 09:58] LABS: ALBUMIN 3.6 g/dL (3.5-5.0)
[2019-05-24 10:08] LABS: HEMATOCRIT 27.6 % (37.0-47.0); HEMOGLOBIN 8.3 g/dL (12.5-16.0)
[2019-05-24 23:43] LABS: PTH,INTACT 258.6 pg/mL (6.6-88.9)
[2019-05-24 23:48] LABS: HEPATITIS B SURFACE ANTIBODY <2.0 (()); HEPATITIS B SURFACE ANTIGEN Negative (Negative)
[2019-05-25 15:30] LABS: POTASSIUM 4.6 mmol/L (3.5-5.1)
[2019-05-25 15:31] LABS: CALCIUM 8.2 mg/dL (8.3-10.5)
== END ==
LOC: LAB 09:35
PROVIDERS: Internal Medicine Nephrology
DX: I15.1 Hypertension secondary to other renal disorders (principal); N17.9 Acute kidney failure, unspecified; N18.5 Chronic kidney disease, stage 5; E11.22 Type 2 diabetes mellitus with diabetic chronic kidney disease; D50.9 Iron deficiency anemia, unspecified

== ENCOUNTER 2019-10-16 08:36 | Emergency (ER) | payer MEDICARE ==
[~2019-10-16] VITALS: Wt 150.4 kg
[2019-10-16 08:55] LABS: BASO # 0.1 (0.02-0.10); EOS # 0.3 (0.04-0.40); EOS % 2.1 % (1.0-5.0); HEMOGLOBIN 10.2 g/dL (12.5-16.0); MEAN CELL VOLUME 96 fl (78-100); MEAN CORPUSCULAR HEMOGLOBIN 28 pg (27-31); MEAN PLATELET VOLUME 10.5 fl (7.4-10.4); MONO # 1.1 (0.20-0.80); PLATELET COUNT 244 K/mm3 (130-400); RED BLOOD COUNT 3.63 M/mm3 (4.10-5.30); RED CELL DISTRIBUTION WIDTH 16.5 % (11.5-14.5); WHITE BLOOD COUNT 12.6 K/mm3 (4.8-10.8)
[2019-10-16 09:05] LABS: MEAN CORPUSCULAR HGB CONC 29 g/dL (33-37)
[2019-10-16 09:10] LABS: ALBUMIN 3.8 g/dL (3.5-5.0); POTASSIUM 4.6 mmol/L (3.5-5.1); SODIUM 140 mmol/L (136-145)
[2019-10-16 09:12] LABS: CALCIUM 7.9 mg/dL (8.3-10.5)
[2019-10-16 09:13] LABS: TOTAL PROTEIN 7.2 g/dL (6.4-8.3)
[2019-10-16 09:14] LABS: CARBON DIOXIDE 20 mmol/L (22-29)
[2019-10-16 09:15] LABS: TOTAL BILIRUBIN 0.3 mg/dL (0.2-1.2)
[2019-10-16 09:18] LABS: AST-SGOT 17 U/L (5-34)
[2019-10-16 09:19] LABS: ALT/SGPT 14 U/L (0-55); GLUCOSE 424 mg/dL (65-105)
[2019-10-16 09:29] LABS: TROPONIN-I < 0.03 ng/mL (<0.030)
[2019-10-16 09:42] LABS: URINE APPEARANCE CLOUDY; URINE BILIRUBIN NEGATIVE (NEGATIVE); URINE BLOOD 50 ery/uL (NEGATIVE); URINE COLOR YELLOW; URINE KETONE NEGATIVE (NEGATIVE); URINE LEUKOCYTE ESTERASE NEGATIVE (NEGATIVE); URINE MUCUS PRESENT (NOT PRESENT); URINE NITRATE NEGATIVE (NEGATIVE); URINE PROTEIN(semi-quant) 3+ mg/dL (NEGATIVE); URINE UROBILINOGEN NORMAL (NORMAL)
[2019-10-16] MEDS ORDERED: TORSEMIDE20 M1 PO (09:46)
[2019-10-16] MEDS ORDERED: ATORVASTATIN CA40 MG PO (09:48)
[2019-10-16] MEDS ORDERED: AURYXIA1 GM PO (09:49)
[2019-10-16] MEDS ORDERED: PANTOPRAZOLE SO40 MG PO (09:50)
[2019-10-16] MEDS ORDERED: ANORO ELLIPTA1 POW IH (09:51)
[2019-10-16] MEDS ORDERED: LEVEMIR100 U/M1 SQ (09:52)
[2019-10-16] MEDS ORDERED: NOVOLOG 100U100 U/ML SQ (09:53)
[2019-10-16 11:15] VITALS: BP 174/78
== END 2019-10-16 11:59 | disposition short-term general hospital (02) ==
LOC: ED 08:36
PROVIDERS: Nurse Practitioner Primary Care
DX: J96.21 Acute and chronic respiratory failure with hypoxia (principal); E11.9 Type 2 diabetes mellitus without complications; I11.0 Hypertensive heart disease with heart failure; I50.9 Heart failure, unspecified; N19 Unspecified kidney failure; E78.5 Hyperlipidemia, unspecified; J44.9 Chronic obstructive pulmonary disease, unspecified; I25.10 Atherosclerotic heart disease of native coronary artery without angina pectoris; I25.2 Old myocardial infarction; D64.9 Anemia, unspecified; Z79.02 Long term (current) use of antithrombotics/antiplatelets; Z79.4 Long term (current) use of insulin; Z87.891 Personal history of nicotine dependence; Z90.5 Acquired absence of kidney; Z99.2 Dependence on renal dialysis
CPT/HCPCS: J0696; J3370; J7050

== ENCOUNTER 2020-03-20 17:31 | Emergency (ER) | payer MEDICARE ==
[~2020-03-20] VITALS: Ht 160 cm; Wt 139.5 kg
[~2020-03-20 17:31] MED LIST changes: +AURYXIA1 GM PO; +TORSEMIDE20 M1 PO
[2020-03-20] MEDS ORDERED: ANORO ELLIPTA1 POW IH (18:07)
[2020-03-20] MEDS ORDERED: PULMICORT90 MCG/Ac1 INH (18:08)
[2020-03-20] MEDS ORDERED: BENADRYL PO (18:11)
[2020-03-20] MEDS ORDERED: DESYREL 100MG100 MG PO (18:11)
[2020-03-20] MEDS ORDERED: CELEBREX 1100 MG/CAP PO (18:12)
[2020-03-20] MEDS ORDERED: TORSEMIDE20 M1 PO (18:13)
[2020-03-20] MEDS ORDERED: VITAMIN D350 MC1 PO (18:14)
[2020-03-20 18:39] LABS: HEMATOCRIT 38.7 % (37.0-47.0); HEMOGLOBIN 11.8 g/dL (12.5-16.0); MEAN CELL VOLUME 94 fl (78-100); MEAN CORPUSCULAR HEMOGLOBIN 29 pg (27-31); MEAN CORPUSCULAR HGB CONC 31 g/dL (33-37); MEAN PLATELET VOLUME 10.1 fl (7.4-10.4); PLATELET COUNT 159 K/mm3 (130-400); RED BLOOD COUNT 4.11 M/mm3 (4.10-5.30); RED CELL DISTRIBUTION WIDTH 15.5 % (11.5-14.5); WHITE BLOOD COUNT 11.1 K/mm3 (4.8-10.8)
[2020-03-20 18:46] LABS: ALBUMIN 3.8 g/dL (3.5-5.0); POTASSIUM 4.1 mmol/L (3.5-5.1)
[2020-03-20 18:48] LABS: CALCIUM 8.5 mg/dL (8.3-10.5)
[2020-03-20 18:49] LABS: TOTAL PROTEIN 7.2 g/dL (6.4-8.3)
[2020-03-20 18:51] LABS: TOTAL BILIRUBIN 0.3 mg/dL (0.2-1.2)
[2020-03-20 19:01] LABS: TROPONIN-I 0.03 ng/mL (<0.030)
[2020-03-20 19:02] LABS: HYPOCHROMIA 1+; LYMPHOCYTE 6 % (20-51); MONOCYTE 9 % (3-10); NEUTROPHILS 84 % (42-75)
[2020-03-20 20:20] VITALS: BP 159/74
== END 2020-03-20 20:20 | disposition home or self-care (01) ==
LOC: ED 17:31
PROVIDERS: Nurse Practitioner Family
DX: R07.89 Other chest pain (principal); E11.65 Type 2 diabetes mellitus with hyperglycemia; I10 Essential (primary) hypertension; I25.10 Atherosclerotic heart disease of native coronary artery without angina pectoris; J44.9 Chronic obstructive pulmonary disease, unspecified; E66.01 Morbid (severe) obesity due to excess calories; Z68.43 Body mass index [BMI] 50.0-59.9, adult; Z99.2 Dependence on renal dialysis; Z79.4 Long term (current) use of insulin; Z95.9 Presence of cardiac and vascular implant and graft, unspecified; Z91.19 Patient's noncompliance with other medical treatment and regimen; Z79.51 Long term (current) use of inhaled steroids
CPT/HCPCS: J1885

== ENCOUNTER → 2020-05-21 | Outpatient (CLI) | payer MEDICARE ==
[~2020-05-21] MED LIST changes: +BENADRYL PO; +CELEBREX 1100 MG/CAP PO; +PULMICORT90 MCG/Ac1 INH; +VITAMIN D350 MC1 PO
== END ==
LOC: VAS 10:56 → RAD 10:56
DX: I65.23 Occlusion and stenosis of bilateral carotid arteries (principal)

== ENCOUNTER → 2020-11-18 | Outpatient (CLI) | payer MEDICARE | LOC: LAB 15:06 | DX: Z20.822 Contact with and (suspected) exposure to COVID-19 (principal) ==

== ENCOUNTER → 2020-12-26 | Outpatient (CLI) | payer MEDICARE ==
[2020-12-26 11:29] LABS: EOS # 0.1 (0.04-0.40); EOS % 1.7 % (1.0-5.0); HEMATOCRIT 35.4 % (37.0-47.0); HEMOGLOBIN 10.3 g/dL (12.5-16.0); LYMPH# 1.6 (1.50-4.00); MEAN CELL VOLUME 93 fl (78-100); MEAN CORPUSCULAR HEMOGLOBIN 27 pg (27-31); MEAN PLATELET VOLUME 10.4 fl (7.4-10.4); MONO # 0.6 (0.20-0.80); NEU # 4.7 (1.40-6.50); PLATELET COUNT 194 K/mm3 (130-400); RED BLOOD COUNT 3.79 M/mm3 (4.10-5.30); RED CELL DISTRIBUTION WIDTH 14.3 % (11.5-14.5)
[2020-12-26 11:37] LABS: POTASSIUM 4.3 mmol/L (3.5-5.1)
[2020-12-26 11:38] LABS: ALBUMIN 3.5 g/dL (3.5-5.0)
[2020-12-26 11:39] LABS: CALCIUM 8.8 mg/dL (8.3-10.5)
[2020-12-26 11:40] LABS: TOTAL PROTEIN 6.5 g/dL (6.4-8.3)
[2020-12-26 11:42] LABS: TOTAL BILIRUBIN 0.8 mg/dL (0.2-1.2)
[2020-12-26 11:51] LABS: MEAN CORPUSCULAR HGB CONC 29 g/dL (33-37)
== END ==
LOC: LAB 10:57
PROVIDERS: Internal Medicine
DX: E11.9 Type 2 diabetes mellitus without complications (principal); E78.5 Hyperlipidemia, unspecified; K90.9 Intestinal malabsorption, unspecified

== ENCOUNTER → 2021-03-23 | Outpatient (CLI) | payer MEDICARE ==
[2021-03-23 15:42] LABS: BASO # 0.03 (0.02-0.10); EOS # 0.25 (0.04-0.40); EOS % 3.3 % (1.0-5.0); HEMATOCRIT 37.1 % (37.0-47.0); HEMOGLOBIN 11.3 g/dL (12.5-16.0); LYMPH# 1.69 (1.50-4.00); MEAN CELL VOLUME 93 fl (78-100); MEAN CORPUSCULAR HEMOGLOBIN 28 pg (27-31); MEAN CORPUSCULAR HGB CONC 31 g/dL (33-37); MEAN PLATELET VOLUME 9.4 fl (7.4-10.4); MONO # 0.77 (0.20-0.80); NEU # 4.91 (1.40-6.50); PLATELET COUNT 189 K/mm3 (130-400); RED CELL DISTRIBUTION WIDTH 15.1 % (11.5-14.5); WHITE BLOOD COUNT 7.7 K/mm3 (4.8-10.8)
[2021-03-23 15:54] LABS: ALBUMIN 3.5 g/dL (3.5-5.0)
[2021-03-23 15:56] LABS: CALCIUM 8.8 mg/dL (8.3-10.5)
[2021-03-23 15:57] LABS: TOTAL PROTEIN 6.9 g/dL (6.4-8.3)
[2021-03-23 15:59] LABS: TOTAL BILIRUBIN 0.6 mg/dL (0.2-1.2)
== END ==
LOC: LAB 15:20
PROVIDERS: Internal Medicine
DX: C64.9 Malignant neoplasm of unspecified kidney, except renal pelvis (principal); Z20.822 Contact with and (suspected) exposure to COVID-19

== ENCOUNTER 2021-10-01 22:45 | Observation (INO) | payer MEDICARE ==
[~2021-10-01] VITALS: Ht 162.6 cm; Wt 117.2 kg
[2021-10-01 23:18] LABS: BASO # 0.01 K/mm3 (0.02-0.10); EOS # 0.08 K/mm3 (0.04-0.40); EOS % 1.5 % (1.0-5.0); HEMATOCRIT 38.3 % (37.0-47.0); HEMOGLOBIN 11.4 g/dL (12.5-16.0); LYMPH# 1.75 K/mm3 (1.50-4.00); MEAN CELL VOLUME 93 fl (78-100); MEAN CORPUSCULAR HEMOGLOBIN 28 pg (27-31); MEAN CORPUSCULAR HGB CONC 30 g/dL (33-37); MEAN PLATELET VOLUME 9.9 fl (7.4-10.4); MONO # 0.61 K/mm3 (0.20-0.80); NEU # 3.04 K/mm3 (1.40-6.50); PLATELET COUNT 129 K/mm3 (130-400); RED BLOOD COUNT 4.14 M/mm3 (4.10-5.30); RED CELL DISTRIBUTION WIDTH 14.4 % (11.5-14.5); WHITE BLOOD COUNT 5.5 K/mm3 (4.8-10.8)
[2021-10-01 23:27] LABS: ALBUMIN 3.2 g/dL (3.5-5.0); POTASSIUM 3.9 mmol/L (3.5-5.1); SODIUM 137 mmol/L (136-145)
[2021-10-01 23:28] LABS: CALCIUM 8.7 mg/dL (8.3-10.5)
[2021-10-01 23:30] LABS: GLUCOSE 157 mg/dL (65-105)
[2021-10-01 23:31] LABS: CARBON DIOXIDE 26 mmol/L (22-29); TOTAL BILIRUBIN 0.6 mg/dL (0.2-1.2)
[2021-10-01 23:35] LABS: ALCOHOL IN-HOUSE < 10 mg/dL (<10); AST-SGOT 12 U/L (5-34)
[2021-10-01 23:37] LABS: ACETAMINOPHEN 2 ug/mL; ALT/SGPT 8 U/L (0-55)
[2021-10-01 23:43] LABS: TROPONIN-I 0.365 ng/mL (<0.030)
[2021-10-02 02:00] VITALS: BP 149/79
[2021-10-02 05:50] VITALS: BP 129/71
[2021-10-02 10:00] VITALS: BP 119/70
[2021-10-02 10:52] LABS: HEMATOCRIT 39.5 % (37.0-47.0); HEMOGLOBIN 11.4 g/dL (12.5-16.0); RED BLOOD COUNT 4.3 M/mm3 (4.10-5.30); RED CELL DISTRIBUTION WIDTH 14.4 % (11.5-14.5); WHITE BLOOD COUNT 4.3 K/mm3 (4.8-10.8)
[2021-10-02 10:58] LABS: ALBUMIN 3.1 g/dL (3.5-5.0); POTASSIUM 4.7 mmol/L (3.5-5.1)
[2021-10-02 11:00] LABS: CALCIUM 8.5 mg/dL (8.3-10.5)
[2021-10-02 11:01] LABS: TOTAL PROTEIN 5.9 g/dL (6.4-8.3)
[2021-10-02 11:03] LABS: TOTAL BILIRUBIN 0.6 mg/dL (0.2-1.2)
[2021-10-02 11:13] LABS: TROPONIN-I 0.293 ng/mL (<0.030)
[2021-10-02 14:10] VITALS: BP 132/72
== END 2021-10-02 15:36 | disposition home health service (06) ==
LOC: ED 22:45 → MED/SURG 10-02 00:19
PROVIDERS: ADMIT Family Medicine
DX: T43.212A Poisoning by selective serotonin and norepinephrine reuptake inhibitors, intentional self-harm, initial encounter (principal); R77.8 Other specified abnormalities of plasma proteins; C64.2 Malignant neoplasm of left kidney, except renal pelvis; C78.7 Secondary malignant neoplasm of liver and intrahepatic bile duct; C78.89 Secondary malignant neoplasm of other digestive organs; I13.2 Hypertensive heart and chronic kidney disease with heart failure and with stage 5 chronic kidney disease, or end stage renal disease; I50.20 Unspecified systolic (congestive) heart failure; N18.6 End stage renal disease; E11.22 Type 2 diabetes mellitus with diabetic chronic kidney disease; E04.1 Nontoxic single thyroid nodule; E78.5 Hyperlipidemia, unspecified; G89.29 Other chronic pain; M54.9 Dorsalgia, unspecified; D63.1 Anemia in chronic kidney disease; K21.9 Gastro-esophageal reflux disease without esophagitis; J44.9 Chronic obstructive pulmonary disease, unspecified; I21.4 Non-ST elevation (NSTEMI) myocardial infarction; Z79.4 Long term (current) use of insulin; Z99.2 Dependence on renal dialysis
CPT/HCPCS: G0378; J1815

== ENCOUNTER 2021-10-16 17:57 | Emergency (ER) | payer MEDICARE ==
[~2021-10-16] VITALS: Ht 162.6 cm; Wt 126.8 kg
[2021-10-16] MEDS ORDERED: CLOPIDOGREL PO (18:27)
[2021-10-16 19:22] LABS: EOS # 0.04 K/mm3 (0.04-0.40); HEMATOCRIT 37.4 % (37.0-47.0); HEMOGLOBIN 11.2 g/dL (12.5-16.0); LYMPH# 0.92 K/mm3 (1.50-4.00); MEAN CELL VOLUME 89 fl (78-100); MEAN CORPUSCULAR HEMOGLOBIN 27 pg (27-31); MEAN CORPUSCULAR HGB CONC 30 g/dL (33-37); MEAN PLATELET VOLUME 10.3 fl (7.4-10.4); MONO # 0.37 K/mm3 (0.20-0.80); NEU # 2.66 K/mm3 (1.40-6.50); PLATELET COUNT 103 K/mm3 (130-400); RED CELL DISTRIBUTION WIDTH 14.4 % (11.5-14.5)
[2021-10-16 19:40] LABS: POTASSIUM 3.5 mmol/L (3.5-5.1)
[2021-10-16 19:41] LABS: CALCIUM 8.1 mg/dL (8.3-10.5)
[2021-10-16 19:43] LABS: TOTAL PROTEIN 5.8 g/dL (6.4-8.3)
[2021-10-16 19:44] LABS: TOTAL BILIRUBIN 0.4 mg/dL (0.2-1.2)
[2021-10-16 19:53] LABS: D-DIMER 0.92 mg/L FEU (0.15-0.50)
[2021-10-16 19:55] LABS: TROPONIN-I 0.294 ng/mL (<0.030)
[2021-10-16 22:20] VITALS: BP 132/64
== END 2021-10-16 22:20 | disposition short-term general hospital (02) ==
LOC: ED 17:57
PROVIDERS: Family Medicine
DX: U07.1 COVID-19 (principal); J44.9 Chronic obstructive pulmonary disease, unspecified; R79.89 Other specified abnormal findings of blood chemistry; E11.22 Type 2 diabetes mellitus with diabetic chronic kidney disease; N18.6 End stage renal disease; I50.9 Heart failure, unspecified; Z99.2 Dependence on renal dialysis; Z79.4 Long term (current) use of insulin

== ENCOUNTER → 2021-12-08 | Outpatient (CLI) | payer MEDICARE ==
[2021-12-08 11:46] LABS: POTASSIUM 5.4 mmol/L (3.5-5.1)
[2021-12-08 11:47] LABS: CALCIUM 8.6 mg/dL (8.3-10.5)
== END ==
LOC: LAB 11:00
PROVIDERS: Nurse Practitioner
DX: E87.5 Hyperkalemia (principal)

== ENCOUNTER → 2022-01-07 | Outpatient (CLI) | payer MEDICARE | LOC: RAD 09:24 | DX: C64.9 Malignant neoplasm of unspecified kidney, except renal pelvis (principal); I51.7 Cardiomegaly ==

== ENCOUNTER 2022-01-15 16:33 | Emergency (ER) | payer MEDICARE ==
[2022-01-15 16:55] LABS: BASO # 0.01 K/mm3 (0.02-0.10); EOS % 1.3 % (1.0-5.0); HEMATOCRIT 39.3 % (37.0-47.0); HEMOGLOBIN 10.8 g/dL (12.5-16.0); LYMPH# 1.83 K/mm3 (1.50-4.00); MEAN CELL VOLUME 94 fl (78-100); MEAN CORPUSCULAR HEMOGLOBIN 26 pg (27-31); MEAN CORPUSCULAR HGB CONC 28 g/dL (33-37); MEAN PLATELET VOLUME 9.2 fl (7.4-10.4); MONO # 0.88 K/mm3 (0.20-0.80); NEU # 4.82 K/mm3 (1.40-6.50); PLATELET COUNT 224 K/mm3 (130-400); RED BLOOD COUNT 4.18 M/mm3 (4.10-5.30); RED CELL DISTRIBUTION WIDTH 17.4 % (11.5-14.5); WHITE BLOOD COUNT 7.7 K/mm3 (4.8-10.8)
[2022-01-15 17:05] LABS: ALBUMIN 2.8 g/dL (3.5-5.0); POTASSIUM 5.4 mmol/L (3.5-5.1)
[2022-01-15 17:06] LABS: SODIUM 138 mmol/L (136-145)
[2022-01-15 17:07] LABS: CALCIUM 8.7 mg/dL (8.3-10.5)
[2022-01-15 17:08] LABS: TOTAL PROTEIN 6.4 g/dL (6.4-8.3)
[2022-01-15 17:09] LABS: CARBON DIOXIDE 21 mmol/L (22-29)
[2022-01-15 17:10] LABS: TOTAL BILIRUBIN 0.5 mg/dL (0.2-1.2)
[2022-01-15 17:13] LABS: AST-SGOT 21 U/L (5-34)
[2022-01-15 17:19] LABS: ALT/SGPT < 6 U/L (0-55); GLUCOSE 42 mg/dL (65-105)
[2022-01-15 21:30] VITALS: BP 125/78
== END 2022-01-15 21:05 | disposition short-term general hospital (02) ==
LOC: ED 16:33
PROVIDERS: Nurse Practitioner
DX: E11.22 Type 2 diabetes mellitus with diabetic chronic kidney disease (principal); E11.649 Type 2 diabetes mellitus with hypoglycemia without coma; E66.01 Morbid (severe) obesity due to excess calories; N18.9 Chronic kidney disease, unspecified; I50.9 Heart failure, unspecified; Z99.2 Dependence on renal dialysis; Z79.4 Long term (current) use of insulin
CPT/HCPCS: J7040